=== PATIENT | male | born 1965 | race Caucasian/White ===

== ENCOUNTER 2019-05-26 08:41 | Inpatient (IN) | payer OTHER ==
[~2019-05-26] VITALS: Ht 157.5 cm; Wt 91.3 kg
[2019-05-26 08:43] VITALS: Ht 157.5 cm; Wt 91.3 kg
[2019-05-26] MEDS ORDERED: DILTIAZEM 25 MG INJ IV STA (08:55)
[2019-05-26] MEDS ORDERED: SOD CHLORIDE 0.9% 500 ML IV STA (08:55)
[2019-05-26] MEDS ORDERED: DILTIAZEM-D5W 125MG/125ML DRIP 125 ML IV STA (08:55)
[2019-05-26] MEDS ORDERED: ASPIRIN 81 MG TAB PO STA (08:55)
[2019-05-26] MEDS ORDERED: MAGNESIUM SULFATE 2 GM/50 ML 50 ML IVPB STA (08:55)
--- NOTE | 2019-05-26 10:40 | ERD ---
ER Documentation Chief Complaint Chief Complaint Pt with non radiating CP and PENG since last night. HPI 54-year-old male who presents to the emergency room complaining of palpitations. Patient states that since last night he started to have palpitations with intermittent chest discomfort. Occasionally is having a headache. He is feeling a sensation that his heart is racing currently. He denies pleuritic pain, no recent fevers chills or cough. No recent travel immobilization or calf swelling. Patient was found to be in A. fib with RVR. This is a new diagnosis for him. Translation services were utilized during this patient's encounter Language: Urdu Source: In person ROS All systems reviewed and are negative except as per history of present illness. Medications Home Meds No Active Prescriptions or Reported Meds Allergies Allergies: Coded Allergies: No Known Allergy (Unverified , 05/26/19) PMhx/Soc Medical and Surgical Hx: pt denies Medical Hx, pt denies Surgical Hx Hx Alcohol Use: No Hx Substance Use: No Hx Tobacco Use: No Smoking Status: Never smoker Physical Exam Vitals Vital Signs Date Temp Pulse Resp B/P (MAP) Pulse Ox O2 O2 Flow FiO2 Time Delivery Rate 05/26/19 74 17 102/63 100 Nasal 2.0 09:34 (76) Cannula 05/26/19 Nasal 2 09:11 Cannula 05/26/19 98.2 110 14 130/106 98 08:43 (114) Physical Exam General: Well developed, well nourished, no acute distress Head: Normocephalic, atraumatic. Eyes: Pupils equally reactive, EOM intact ENT: Moist mucous membranes Neck: Supple, no lymphadenopathy Respiratory: Lungs clear bilaterally, no distress Cardiovascular: tachycardia, irregularly irregular, no murmurs, rubs, or gallops Abdominal: Soft, non-tender, non-distended, no peritoneal signs : Deferred MSK: No edema, no unilateral swelling, 5/5 strength Neurologic: Alert and oriented, moving all extremities, normal speech, no focal weakness, no cerebellar signs Skin: No rash Psych: Normal mood Result Diagram: 05/26/1917 05/26/19916 Results 24 hrs Laboratory Tests Test 05/26/19 09:17 White Blood Count 6.6 10^3/ul Red Blood Count 5.15 10^6/ul Hemoglobin 15.3 g/dl Hematocrit 44.6 % Mean Corpuscular Volume 86.6 fl Mean Corpuscular Hemoglobin 29.7 pg Mean Corpuscular Hemoglobin Concent 34.3 g/dl Red Cell Distribution Width 13.1 % Platelet Count 232 10^3/UL Mean Platelet Volume 11.7 fl Immature Granulocytes % 0.200 % Neutrophils % 73.8 % Lymphocytes % 17.5 % Monocytes % 7.4 % Eosinophils % 0.8 % Basophils % 0.3 % Nucleated Red Blood Cells % 0.0 /100WBC Immature Granulocytes # 0.010 10^3/ul Neutrophils # 4.9 10^3/ul Lymphocytes # 1.2 10^3/ul Monocytes # 0.5 10^3/ul Eosinophils # 0.1 10^3/ul Basophils # 0.0 10^3/ul Nucleated Red Blood Cells # 0.0 10^3/ul Prothrombin Time 13.6 Sec Prothrombin Time Ratio 1.1 INR International Normalized Ratio 1.03 Activated Partial Thromboplast Time 33.2 Sec Sodium Level 142 mmol/L Potassium Level 4.0 mmol/L Chloride Level 107 mmol/L Carbon Dioxide Level 25 mmol/L Anion Gap 10 Blood Urea Nitrogen 11 mg/dl Creatinine 0.67 mg/dl Est Glomerular Filtrat Rate mL/min > 60 mL/min Glucose Level 121 mg/dl Calcium Level 9.0 mg/dl Troponin I < 0.012 ng/ml B-Type Natriuretic Peptide 694 PG/ML Thyroid Stimulating Hormone (TSH) 0.856 MIU/L Free Thyroxine Index 2.90 ug/ml Thyroxine (T4) 8.8 ug/dl Triiodothyronine (T3) Uptake 33.0 % Current Medications Medications Dose Sig/Lasha Start Time Status Last (Trade) Ordered Route PRN Stop Time Admin Dose Reason Admin Sodium 500 ml @ Q1H STAT 05/26/19 DC 05/26/19 Chloride 500 mls/hr IV 08:55 05/26/19 09:25 09:54 Aspirin 162 mg ONCE STAT 05/26/19 DC 05/26/19 (Aspirin) PO 08:55 05/26/19 09:23 08:57 Diltiazem 20 mg ONCE STAT 05/26/19 DC 05/26/19 HCl IV 08:55 05/26/19 09:24 (Cardizem Iv) 08:57 Diltiazem 125 ml @ 5 ONCE STAT 05/26/19 HCl mls/hr IV 08:55 05/27/19 09:54 Magnesium 50 ml @ ONCE STAT 05/26/19 DC 05/26/19 Sulfate 600 mls/hr IVPB 08:55 05/26/19 09:23 08:59 Ondansetron 4 mg ER BRIDGE 05/26/19 HCl (Zofran PRN IV 11:00 05/27/19 Inj) NAUSEA/VOMITI 10:59 NG 650 mg ER BRIDGE 05/26/19 Acetaminophen PRN PO 11:00 05/27/19 (Tylenol .MILD PAIN 10:59 Tab) 1-3 OR TEMP Procedures/MDM EKG, MONITORS, & DIAGNOSTIC IMAGING: EKG: I reviewed and interpreted a 12-lead EKG. Rhythm: A. fib with RVR ST Changes: No contiguous ST segment elevations T waves: No contiguous T wave inversions Impression: A. fib with RVR Repeat EKG: EKG: I reviewed and interpreted a 12-lead EKG. Rhythm: A. fib with RVR ST Changes: No contiguous ST segment elevations T waves: No contiguous T wave inversions Impression: A. fib with RVR Chest x-ray: I reviewed and interpreted a 1 view of the chest Mediastinum: No enlargement Cardiac silhouette: No cardiomegaly Airspace: Clear lung arshad bilaterally without evidence of pneumothorax Bones: No evidence of fracture PROCEDURES: None LAB INTERPRETATION: * Troponin MEDICAL DECISION MAKING: The patient's history, physical exam and clinical presentation is consistent with new onset atrial fibrillation with rapid ventricular response of unclear etiology. Broad differential exists without concern for pulmonary embolism. Patient will be warrant inpatient hospitalization for further work-up for new onset A. fib Based on the patient's clinical exam and history and risk factors, I have a much lower clinical concern for pulmonary embolism, acute aortic dissection, pneumothorax, pneumonia, cardiac tamponade ER COURSE: * Magnesium, Cardizem bolus given. No indication for drip at this time. Drip to the bedside. * Aspirin given. Symptoms improved with rate control. CONSULTATION: None DISPOSITION PLAN: Telemetry admission for management of chest pain to rule out acute coronary synd larisa, serial enzymes, risk stratification and consideration of provocative testing CONSULTATION: Accepting care team and consultations: I discussed the current laboratory data, diagnostic imaging and emergency care provided. Admitting team: Dr. Graham Admitting team indication: Insurance directed Departure Diagnosis: Primary Impression: Chest pain Chest pain type: unspecified Qualified Codes: R07.9 - Chest pain, unspecified Additional Impressions: Atrial fibrillation, new onset Atrial fibrillation with RVR Condition: MELVINA Hernandez MD May 26, 2019 10:40
[2019-05-26] MEDS ORDERED: ONDANSETRON 4 MG INJ IV PRN ×2 (11:00→12:00)
[2019-05-26] MEDS ORDERED: ACETAMINOPHEN 325 MG TAB PO PRN ×2 (11:00→12:00)
--- NOTE | 2019-05-26 11:46 | HP ---
Date/Time of Note Date/Time of Note DATE: 05/26/19 TIME: 11:46 Assessment/Plan VTE Prophylaxis Pharmacological prophylaxis: LMWH Lines/Catheters IV Catheter Type (from [email or web address] [place] Lock Assessment/Plan Hospital Course 54-year-old male who denies any significant past medical history who came to the emergency room with chief complaint of chest pain, palpitations, and headache, who was found to have evidence of underlying atrial fibrillation with rapid ventricular response, who will be admitted to inpatient setting for further treatment and evaluation. 1. Atrial fibrillation with rapid ventricular response. Status post Cardizem. Will give a single dose of digoxin. Will start the patient on low-dose beta-blockers. Will obtain cardiology consult. Thyroid panel within normal limits. Will obtain a 2D echocardiogram to evaluate the left ventricular ejection fraction. Obtain urine drug screen. [id number] score is 0. 2. Obesity. BMI 36 kg/m. Obtain hemoglobin A1c and fasting lipid panel. Advised lifestyle modification. Plan: The patient will be admitted to inpatient telemetry floor. The patient will be started on a low cholesterol diet. The patient will be started on DVT prophylaxis. The patient will remain a full code. Activities will be as tolerated. The rest of the patient's management will be based on the clinical course, inpu ts from consultants, and the results of diagnostic studies. Based on the patient's clinical presentation, he most probably requires at least 1 midnight's stay for further management and evaluation of his clinical presentation. The patient was seen in collaboration with Dr. Graham. Result Diagram: 05/26/19 0917 05/26/19 0917 Results 24hrs Laboratory Tests Test 05/26/19 09:17 White Blood Count 6.6 Red Blood Count 5.15 Hemoglobin 15.3 Hematocrit 44.6 Mean Corpuscular Volume 86.6 Mean Corpuscular Hemoglobin 29.7 Mean Corpuscular Hemoglobin Concent 34.3 Red Cell Distribution Width 13.1 Platelet Count 232 Mean Platelet Volume 11.7 H Immature Granulocytes % 0.200 Neutrophils % 73.8 Lymphocytes % 17.5 Monocytes % 7.4 Eosinophils % 0.8 Basophils % 0.3 Nucleated Red Blood Cells % 0.0 Immature Granulocytes # 0.010 Neutrophils # 4.9 Lymphocytes # 1.2 Monocytes # 0.5 Eosinophils # 0.1 Basophils # 0.0 Nucleated Red Blood Cells # 0.0 Prothrombin Time 13.6 Prothrombin Time Ratio 1.1 INR International Normalized Ratio 1.03 Activated Partial Thromboplast Time 33.2 Sodium Level 142 Potassium Level 4.0 Chloride Level 107 Carbon Dioxide Level 25 Anion Gap 10 Blood Urea Nitrogen 11 Creatinine 0.67 Est Glomerular Filtrat Rate mL/min > 60 Glucose Level 121 Calcium Level 9.0 Troponin I < 0.012 B-Type Natriuretic Peptide 694 H Thyroid Stimulating Hormone (TSH) 0.856 Free Thyroxine Index 2.90 Thyroxine (T4) 8.8 Triiodothyronine (T3) Uptake 33.0 HPI/ROS Admit Date/Time Admit Date/Time Hx of Present Illness This is a 54-year-old male who denies any significant past medical history other than remote history of similar episode of palpitations approximately 2 years ago. The patient came to the emergency room today with chief complaint of chest pain, palpitations, and headache. The patient verbalized that the palpitations woke him up from sleep. He was complaining of chest pain, headache, and dizziness. He was complaining of nausea. He denied any vomiting or diaphoresis. He was complaining of some dyspnea. He denied any cough or sore throat. The patient denied any abdominal pain, diarrhea, or constipation. He denied any dysuria, urinary urgency, frequency. In the emergency room, the patient was noticed to be in atrial fibrillation with rapid ventricular response. The patient was given a single dose of aspirin along with a Cardizem 20 mg IV push and IV magnesium. ROS Constitutional: no complaints Eyes: no complaints ENT: no complaints Respiratory: shortness of breath Cardiovascular: chest pain, palpitations Gastrointestinal: nausea Genitourinary: no complaints Musculoskeletal: no complaints Skin: no complaints Neurologic: dizziness, headache Endocrine: no complaints Lymphatic: no complaints Psychological: no complaints Immunologic: no complaints PMH/Family/Social Past Medical History Medical History: no pertinent history Medications Current Medications Diltiazem HCl 125 ml @ 5 mls/hr ONCE STAT IV ; Start 05/26/19 at 08:55; Stop 05/27/19 at 09:54 Ondansetron HCl (Zofran Inj) 4 mg ER BRIDGE PRN IV NAUSEA/VOMITING; Start 05/26/19 at 11:00; Stop 05/27/19 at 10:59 Acetaminophen (Tylenol Tab) 650 mg ER BRIDGE PRN PO .MILD PAIN 1-3 OR TEMP; Start 05/26/19 at 11:00; Stop 05/27/19 at 10:59 Coded Allergies: No Known Allergy (Unverified , 05/26/19) Past Surgical History Past Surgical Hx: no surgical history Family History Significant Family History: hypertension Social History Lives at home with family. Works as a construction project assistant. Alcohol Use: occasionally Smoking Status: Never smoker Drug Use: none Exam/Review of Systems Vital Signs Vitals Vital Signs Date Temp Pulse Resp B/P (MAP) Pulse Ox O2 O2 Flow FiO2 Time Delivery Rate 05/26/19 74 17 102/63 100 Nasal 2.0 09:34 (76) Cannula 05/26/19 98.2 08:43 Exam Exam General: 54 obese, year-old male lying in bed in no apparent distress. HEENT: Normocephalic, atraumatic. Eyes: Anicteric sclerae, conjunctivae clear. ENT: Nasal septum midline, oral mucosa moist. Neck supple, no JVD noticed. Respiratory: Bilaterally diminished breath sounds. No use of accessory muscles of respiration. No adventitious breath sounds. Cardiovascular: S1, S2 heard. Irregularly irregular rhythm. Abdomen: Soft, nontender, and nondistended. Bowel sounds positive in all 4 quadrants. Genitourinary: Deferred. Extremities: No cyanosis, no clubbing, no edema. Peripheral pulses palpable. Neurologic: Cranial nerves II through XII grossly intact. The patient is awake, alert, and oriented. Skin: Normal skin turgor. No skin rashes. Additional Comments CXR IMPRESSION: 1. Mildly atherosclerotic aorta 2. Otherwise, unremarkable portable chest. JOHNNY HUERTA NP May 26, 2019 11:46
[2019-05-26] MEDS ORDERED: NACL 0.9% 3 ML SYG IV SCH (12:00)
[2019-05-26] MEDS ORDERED: NITROGLYCERIN (SL) 0.4 MG TAB SL PRN (12:00)
[2019-05-26] MEDS ORDERED: DIGOXIN 500 MCG INJ IV ONE (12:00)
[2019-05-26] MEDS: METOPROLOL 25 MG TAB PO SCH ×2 (12:00→20:52)
[2019-05-26 18:54] VITALS: BP 105/56; PULSE 94; RESP 18
[2019-05-26 20:31] VITALS: BP 126/72; PULSE 62; RESP 20
[2019-05-26] MEDS: HYDROCODONE/APAP (5/325) TAB PO PRN (20:56)
[2019-05-27 00:03] VITALS: BP 101/66; PULSE 75; RESP 18
[2019-05-27 04:13] VITALS: BP 99/57; PULSE 53; RESP 16
[2019-05-27 07:30] VITALS: BP 108/61; PULSE 70; RESP 18
--- NOTE | 2019-05-27 07:37 | RADRPT ---
Echocardiogram Report Patient Name: RONDA DIOPPatient ID: [id number] : 1965 (54y )Study Date: 05/26/2019 2:09:44 PM Gender: Kelsey #: [id number] Tech: Braulio Baires RDCS Location: [facility] Ref.Physician: JOHNNY HUERTA Height(Cm): BSA: Weight(Kg): Quality: AdequateOrder Physician: JOHNNY HUERTA Account #: Procedures: Echocardiographic Report: Transthoracic echocardiogram with complete 2D, M-Mode, and doppler examination. Indications: Chest Pain. Measurements: 2D/M Mode Doppler Measurement Value Normal Range Measurement Value Normal Range LVIDd 2D 4.7 [ 4.2 - 5.8 ] cm AV Mean Mo 4.4 [ 70.0 - 90.0 ] cm/sec LVIDs 2D 2.3 [ 2.5 - 4.0 ] cm AV Mean PG 96.0 [ 2.0 - 4.0 ] mmHg LVPWd 2D 1.3 [ 0.6 - 1.0 ] cm AV Peak Mo 6.8 [ 100.0 - 170.0 ] cm/sec IVSd 2D 1.3 [ 0.6 - 1.0 ] cm AV Peak PG 186.0 [ 2.0 - 9.0 ] mmHg AoR Diam 2D 2.7 [ 2.6 - 3.4 ] cm AV VTI 125.0 cm LA/Ao 2D 1 ratio TR Peak Mo 2.3 [ 100.0 - 280.0 ] cm/sec LA Dimen 2D 3.9 [ 3.0 - 4.0 ] cm TR Peak PG 21.0 mmHg RVSP 31.0 [ 10.0 - 36.0 ] mmHg RA Pressure 10.0 mmHg Findings: Left Ventricle: Normal left ventricular systolic function. Normal left ventricular cavity size. Moderate asymmetric septal hypertrophy. Mild concentric left ventricular hypertrophy. Abnormal Diastolic Function. Resting left ventricular outflow tract velocity 3.41 m/sec. Resting left ventricular outflow tract gradient 46.0 mmHg. Velocity 6.81 m/sec. Max PG 186.00 mmHg. Right Ventricle: Normal right ventricular size. Normal right ventricular systolic function. Left Atrium: The left atrium is normal in size. Right Atrium: The right atrium is normal in size. Mitral Valve: Normal appearance of the mitral valve. Mild mitral annular calcification. Trace mitral regurgitation. Mild systolic anterior motion of mitral valve. Aortic Valve: Normal appearance of the aortic valve. No significant aortic stenosis or insufficiency. Tricuspid Valve: Normal appearance of the tricuspid valve. The estimated Peak RVSP is 31 mmHg. There is trace tricuspid regurgitation. Pulmonic Valve: Normal pulmonic valve appearance. Pericardium: Normal pericardium with no significant pericardial effusion. Aorta: Normal aortic root. IVC: Normal size and normal respiratory collapse consistent with normal right atrial pressure. Conclusions: Normal left ventricular systolic function. Normal left ventricular cavity size. Moderate asymmetric septal hypertrophy. Mild concentric left ventricular hypertrophy. Abnormal Diastolic Function. Resting left ventricular outflow tract velocity 3.41 m/sec. Resting left ventricular outflow tract gradient 46.0 mmHg. Velocity 6.81 m/sec. Max PG 186.00 mmHg. The left atrium is normal in size. Normal appearance of the mitral valve. Mild mitral annular calcification. Trace mitral regurgitation. Mild systolic anterior motion of mitral valve. Normal appearance of the aortic valve. No significant aortic stenosis or insufficiency. Normal appearance of the tricuspid valve. The estimated Peak RVSP is 31 mmHg. There is trace tricuspid regurgitation. Normal size and normal respiratory collapse consistent with normal right atrial pressure. above is consistent with HCM physiology. Electronically Signed By: Judah Arambula 2019-05-27 07:37:09 PDT
--- NOTE | 2019-05-27 08:32 | CONS ---
Assessment/Plan Assessment/Plan Hospital Course (Demo Recall) 1. Atrial fibrillation rapid ventricular response 2. Chest discomfort secondary to above 3. LVH /septal hypertrophy and GAMAL on the echo with high LV gradient consistent with hypertrophic cardiomyopathy physiology Recommendations: Continue with metoprolol. Heart rate currently stable we will stop the Cardizem drip I recommend anticoagulation with either Xarelto or Eliquis for now. Patient to be reevaluated and if continues to be atrial fibrillation within the next morning DC cardioversion to be considered next month after full anticoagulation has been started. Otherwise DC planning as per internal medicine. Okay to discharge from the cardiac standpoint. Thank you for this referral. We will follow with you as needed basis THEODORA MIN MD [facility] Consultation Date/Type/Reason Admit Date/Time Date of Consultation: May 27, 2019 Type of Consult Cardiology Reason for Consultation afib Requesting Provider: JOHNNY HUERTA NP Date/Time of Note DATE: 05/27/19 TIME: 08:26 Hx of Present Illness Interventional cardiology consultation note Chief complaint: Palpitation headache Reason for consult: Atrial fibrillation History of present illness: Thank you for this referral. History was informed the patient discussion with staff and physicians discussion with with his . This is a pleasant 54-year-old gentleman with no known past medical history who came to the emergency above complaint. Patient stated last night he started having headache. He was having heavy pounding in his chest he was going fast and slow. He called his primary doctor decided to could not see him for another 3 days and patient came to the emergency room. In the emergency room he was noted to be atrial fibrillation with ventricular response. Heart rate has responded well to medication and currently has been bradycardic on Cardizem drip. No chest pain or pressure no palpitation and feels well wants to go home Allergies: No known drug allergies Medications At Home none Family history: Sister with CVA during her Social history: Does not smoke. Occasional use alcohol but denies any heavy use Past medical history: None Review of system: Patient denies all others except for above-mentioned Past Medical History Home Meds No Active Prescriptions or Reported Meds Medications Current Medications Diltiazem HCl 125 ml @ 5 mls/hr ONCE STAT IV Last administered on 05/26/19at 11:59; Admin Dose 5 MLS/HR; Start 05/26/19 at 08:55; Stop 05/27/19 at 09:54 Ondansetron HCl (Zofran Inj) 4 mg ER BRIDGE PRN IV NAUSEA/VOMITING; Start 05/26/19 at 11:00; Stop 05/27/19 at 10:59 Acetaminophen (Tylenol Tab) 650 mg ER BRIDGE PRN PO .MILD PAIN 1-3 OR TEMP Last administered on 05/26/19at 17:33; Admin Dose 650 MG; Start 05/26/19 at 11:00; Stop 05/27/19 at 10:59 IV Flush (NS 3 ml) 3 ml PER PROTOCOL IV ; Start 05/26/19 at 12:00 Ondansetron HCl (Zofran Inj) 4 mg Q6H PRN IV NAUSEA/VOMITING; Start 05/26/19 at 12:00 Aspirin (Aspirin) 81 mg DAILY PO ; Start 05/27/19 at 09:00 Nitroglycerin (Nitroglycerin (Sl Tab) 0.4 Mg) 1 tab Q5M PRN SL .CHEST PAIN; Start 05/26/19 at 12:00 Acetaminophen (Tylenol Tab) 650 mg Q6H PRN PO .PAIN 1-3 OR TEMP; Start 05/26/19 at 12:00 Acetaminophen/ Hydrocodone Bitart ([place] (5/325)) 1 tab Q6H PRN PO .PAIN 4-6 Last administered on 05/26/19at 20:56; Admin Dose 1 TAB; Start 05/26/19 at 12:00 Enoxaparin Sodium (Lovenox) 40 mg DAILY SC ; Start 05/27/19 at 09:00 Metoprolol Tartrate (Lopressor) 25 mg BID PO Last administered on 05/26/19at 20:52; Admin Dose 25 MG; Start 05/26/19 at 12:00 Diltiazem HCl (Cardizem Iv) 5 mg Q1H PRN IV HR>120; Start 05/26/19 at 12:00 Allergies: Coded Allergies: No Known Allergy (Unverified , 05/26/19) Past Surgical History Past Surgical Hx: no surgical history Social History Alcohol Use: occasionally Smoking Status: Never smoker Drug Use: none Exam/Review of Systems Vital Signs Vitals Vital Signs Date Temp Pulse Resp B/P (MAP) Pulse Ox O2 O2 Flow FiO2 Time Delivery Rate 05/27/19 97.5 70 18 108/61 97 07:30 (77) 05/26/19 Room Air 18:54 05/26/19 2.0 18:29 Exam Exam General: no acute distress HEENT: NC/AT. pupils are equal. round. NECK: NO JVD. no stridor. CV: Irregularly irregular. systolic murmur; no gallop or rubs. PULM: no wheezing or rhonchi. GI: SOFT, NT, ND, no rebound or guarding Extremity: trace B/L LE edema. no clubbing. neuro: awake and alert, OX3. Psych: calm and pleasant rectal: deferred EKG in the emergency room showed atrial fibrillation rapid ventricular response Echocardiogram done May 26, 2019 was personally reviewed which shows: Normal left ventricular systolic function. Normal left ventricular cavity size. Moderate asymmetric septal hypertrophy. Mild concentric left ventricular hypertrophy. Abnormal Diastolic Function. Resting left ventricular outflow tract velocity 3.41 m/sec. Resting left ventricular outflow tract gradient 46.0 mmHg. Velocity 6.81 m/sec. Max PG 186.00 mmHg. The left atrium is normal in size. Normal appearance of the mitral valve. Mild mitral annular calcification. Trace mitral regurgitation. Mild systolic anterior motion of mitral valve. Normal appearance of the aortic valve. No significant aortic stenosis or insufficiency. Normal appearance of the tricuspid valve. The estimated Peak RVSP is 31 mmHg. T here is trace tricuspid regurgitation. Normal size and normal respiratory collapse consistent with normal right atrial pressure. above is consistent with HCM physiology. Labs Result Diagram: 05/27/19 0611 05/27/19 0611 Results 24hrs Laboratory Tests Test 05/26/19 09:17 05/26/19 16:50 05/26/19 21:39 05/27/19 06:11 White Blood Count 6.6 7.1 Red Blood Count 5.15 5.26 Hemoglobin 15.3 15.5 Hematocrit 44.6 45.6 Mean Corpuscular Volume 86.6 86.7 Mean Corpuscular 29.7 29.5 Hemoglobin Mean Corpuscular 34.3 34.0 Hemoglobin Concent Red Cell Distribution 13.1 13.5 Width Platelet Count 232 245 Mean Platelet Volume 11.7 H 11.9 H Immature Granulocytes % 0.200 0.300 Neutrophils % 73.8 46.8 Lymphocytes % 17.5 41.7 Monocytes % 7.4 7.6 Eosinophils % 0.8 3.0 Basophils % 0.3 0.6 Nucleated Red Blood 0.0 0.0 Cells % Immature Granulocytes # 0.010 0.020 Neutrophils # 4.9 3.3 Lymphocytes # 1.2 3.0 H Monocytes # 0.5 0.5 Eosinophils # 0.1 0.2 Basophils # 0.0 0.0 Nucleated Red Blood 0.0 0.0 Cells # Prothrombin Time 13.6 Prothrombin Time Ratio 1.1 INR International 1.03 Normalized Ratio Activated 33.2 Partial Thromboplast Time Sodium Level 142 142 Potassium Level 4.0 4.3 Chloride Level 107 109 Carbon Dioxide Level 25 25 Anion Gap 10 8 Blood Urea Nitrogen 11 16 Creatinine 0.67 0.89 Est Glomerular Filtrat > 60 > 60 Rate mL/min Glucose Level 121 125 Hemoglobin A1c 5.3 Calcium Level 9.0 8.6 Troponin I < 0.012 < 0.012 0.016 0.017 B-Type Natriuretic 694 H Peptide Thyroid Stimulating 0.856 Hormone (TSH) Free Thyroxine Index 2.90 Thyroxine (T4) 8.8 Triiodothyronine (T3) 33.0 Uptake Creatine Kinase 117 104 Creatine Kinase Index 2.0 2.0 Creatinine Kinase MB 2.31 2.03 (Mass) Phosphorus Level 4.1 Magnesium Level 2.2 Total Bilirubin 0.5 Direct Bilirubin 0.00 Indirect Bilirubin 0.5 Aspartate Amino 27 Transf (AST/SGOT) Alanine 26 Aminotransferase (ALT/SG PT) Alkaline Phosphatase 47 Total Protein 7.0 Albumin 3.9 Globulin 3.10 Albumin/Globulin Ratio 1.25 Triglycerides Level 214 H Cholesterol Level 183 LDL Cholesterol, 107 Calculated HDL Cholesterol 33 Cholesterol/HDL Ratio 5.5 Medications Medications Current Medications Diltiazem HCl 125 ml @ 5 mls/hr ONCE STAT IV Last administered on 05/26/19at 11:59; Admin Dose 5 MLS/HR; Start 05/26/19 at 08:55; Stop 05/27/19 at 09:54 Ondansetron HCl (Zofran Inj) 4 mg ER BRIDGE PRN IV NAUSEA/VOMITING; Start 05/26/19 at 11:00; Stop 05/27/19 at 10:59 Acetaminophen (Tylenol Tab) 650 mg ER BRIDGE PRN PO .MILD PAIN 1-3 OR TEMP Last administered on 05/26/19at 17:33; Admin Dose 650 MG; Start 05/26/19 at 11:00; Stop 05/27/19 at 10:59 IV Flush (NS 3 ml) 3 ml PER PROTOCOL IV ; Start 05/26/19 at 12:00 Ondansetron HCl (Zofran Inj) 4 mg Q6H PRN IV NAUSEA/VOMITING; Start 05/26/19 at 12:00 Aspirin (Aspirin) 81 mg DAILY PO ; Start 05/27/19 at 09:00 Nitroglycerin (Nitroglycerin (Sl Tab) 0.4 Mg) 1 tab Q5M PRN SL .CHEST PAIN; Start 05/26/19 at 12:00 Acetaminophen (Tylenol Tab) 650 mg Q6H PRN PO .PAIN 1-3 OR TEMP; Start 05/26/19 at 12:00 Acetaminophen/ Hydrocodone Bitart ([place] (5/325)) 1 tab Q6H PRN PO .PAIN 4-6 Last administered on 05/26/19at 20:56; Admin Dose 1 TAB; Start 05/26/19 at 12:00 Enoxaparin Sodium (Lovenox) 40 mg DAILY SC ; Start 05/27/19 at 09:00 Metoprolol Tartrate (Lopressor) 25 mg BID PO Last administered on 05/26/19at 20:52; Admin Dose 25 MG; Start 05/26/19 at 12:00 Diltiazem HCl (Cardizem Iv) 5 mg Q1H PRN IV HR>120; Start 05/26/19 at 12:00 THEODORA MIN MD May 27, 2019 08:32
[2019-05-27] MEDS ORDERED: ASPIRIN 81 MG TAB PO SCH (09:00)
[2019-05-27] MEDS ORDERED: METOPROLOL (XL) 25 MG TAB PO SCH (09:00)
[2019-05-27] MEDS ORDERED: ENOXAPARIN 100 MG/ML SYG SC SCH (09:00)
[2019-05-27] MEDS ORDERED: ENOXAPARIN 40 MG/0.4 ML SYG SC SCH (09:00)
[2019-05-27 11:08] VITALS: BP 144/68; PULSE 66; RESP 18
[2019-05-27] MEDS: HYDROCODONE/APAP (5/325) TAB PO PRN (15:40)
[2019-05-27 15:46] VITALS: BP 103/73; PULSE 78; RESP 18
--- NOTE | 2019-05-27 16:57 | PDOCDIS ---
Discharge Instructions CONDITION [id number] Patient Condition: [id number] Stable HOME CARE INSTRUCTIONS: [id number] Diet Instructions: [id number] y Avoid heavy lifting FOLLOW UP/APPOINTMENTS Follow-up Plan no driving if dizzy. appt primary 1wk Dr Tammi Arambula 2wks COREY ROD MD May 27, 2019 16:57
[2019-05-27] MEDS ORDERED: ACET325T33 PO (16:59)
[2019-05-27] MEDS ORDERED: RIVA20TA5 PO (16:59)
[2019-05-27] MEDS ORDERED: METO-335 PO (16:59)
[2019-05-27] MEDS: DILTIAZEM 25 MG INJ IV PRN ×2 (17:40→18:37)
--- NOTE | 2019-05-27 18:15 | PN ---
Date/Time of Note Date/Time of Note DATE: 05/27/19 TIME: 18:13 Assessment/Plan VTE Prophylaxis Risk score (from [facility])>0 risk: 4 SCD applied (from [facility]): Yes SCD contraindicated: low risk/ambulating Pharmacological prophylaxis: NA/contraindicated Pharm contraindication: low risk/ambulating Lines/Catheters IV Catheter Type (from [facility]): Peripheral IV Urinary Cath still in place: No Assessment/Plan Hospital Course Hospitalist coverage Assessment and plan 1. New onset A. fib RVR, stable adjust rate control. Start Xarelto. Probable cardioversion after 1 month on Xarelto. 2. Atrophic cardia myopathy, stable follow-up with cardiology. 3. Acute stress/adjustment disorder, continue supportive care line 4. Past alcoholism? Denies any stimulant at this time 5. Metabolic syndrome S: less palpitations. Atypical chest pain at rest. No cough diaphoresis nausea vomiting. Under little stress as he is having car trouble. Tachycardic with activity O: Vital signs stable Physical exam No pallor JVD Regular no murmur rub gallop Clear Benign No edema Neuro: Nonfocal Result Diagram: 05/27/19 0611 05/27/19 0611 Results 24hrs Laboratory Tests Test 05/26/19 21:39 05/27/19 06:11 05/27/19 10:00 Creatine Kinase 104 Creatine Kinase Index 2.0 Creatinine Kinase MB (Mass) 2.03 Troponin I 0.016 0.017 White Blood Count 7.1 Red Blood Count 5.26 Hemoglobin 15.5 Hematocrit 45.6 Mean Corpuscular Volume 86.7 Mean Corpuscular Hemoglobin 29.5 Mean Corpuscular Hemoglobin Concent 34.0 Red Cell Distribution Width 13.5 Platelet Count 245 Mean Platelet Volume 11.9 H Immature Granulocytes % 0.300 Neutrophils % 46.8 Lymphocytes % 41.7 Monocytes % 7.6 Eosinophils % 3.0 Basophils % 0.6 Nucleated Red Blood Cells % 0.0 Immature Granulocytes # 0.020 Neutrophils # 3.3 Lymphocytes # 3.0 H Monocytes # 0.5 Eosinophils # 0.2 Basophils # 0.0 Nucleated Red Blood Cells # 0.0 Sodium Level 142 Potassium Level 4.3 Chloride Level 109 Carbon Dioxide Level 25 Anion Gap 8 Blood Urea Nitrogen 16 Creatinine 0.89 Est Glomerular Filtrat Rate mL/min > 60 Glucose Level 125 Calcium Level 8.6 Phosphorus Level 4.1 Magnesium Level 2.2 Total Bilirubin 0.5 Direct Bilirubin 0.00 Indirect Bilirubin 0.5 Aspartate Amino Transf (AST/SGOT) 27 Alanine Aminotransferase (ALT/SGPT) 26 Alkaline Phosphatase 47 Total Protein 7.0 Albumin 3.9 Globulin 3.10 Albumin/Globulin Ratio 1.25 Triglycerides Level 214 H Cholesterol Level 183 LDL Cholesterol, Calculated 107 HDL Cholesterol 33 Cholesterol/HDL Ratio 5.5 Urine Opiates Screen Positive Urine Barbiturates Negative Urine Amphetamines Screen Negative Urine Benzodiazepines Screen Negative Urine Cocaine Screen Negative Urine Cannabinoids Negative Exam/Review of Systems Exam Vitals Vital Signs Date Temp Pulse Resp B/P (MAP) Pulse Ox O2 O2 Flow FiO2 Time Delivery Rate 05/27/19 97.9 78 18 103/73 95 Room Air 15:46 (83) 05/26/19 2.0 18:29 Results Results 24hrs Laboratory Tests Test 05/26/19 21:39 05/27/19 06:11 05/27/19 10:00 Creatine Kinase 104 Creatine Kinase Index 2.0 Creatinine Kinase MB (Mass) 2.03 Troponin I 0.016 0.017 White Blood Count 7.1 Red Blood Count 5.26 Hemoglobin 15.5 Hematocrit 45.6 Mean Corpuscular Volume 86.7 Mean Corpuscular Hemoglobin 29.5 Mean Corpuscular Hemoglobin Concent 34.0 Red Cell Distribution Width 13.5 Platelet Count 245 Mean Platelet Volume 11.9 H Immature Granulocytes % 0.300 Neutrophils % 46.8 Lymphocytes % 41.7 Monocytes % 7.6 Eosinophils % 3.0 Basophils % 0.6 Nucleated Red Blood Cells % 0.0 Immature Granulocytes # 0.020 Neutrophils # 3.3 Lymphocytes # 3.0 H Monocytes # 0.5 Eosinophils # 0.2 Basophils # 0.0 Nucleated Red Blood Cells # 0.0 Sodium Level 142 Potassium Level 4.3 Chloride Level 109 Carbon Dioxide Level 25 Anion Gap 8 Blood Urea Nitrogen 16 Creatinine 0.89 Est Glomerular Filtrat Rate mL/min > 60 Glucose Level 125 Calcium Level 8.6 Phosphorus Level 4.1 Magnesium Level 2.2 Total Bilirubin 0.5 Direct Bilirubin 0.00 Indirect Bilirubin 0.5 Aspartate Amino Transf (AST/SGOT) 27 Alanine Aminotransferase (ALT/SGPT) 26 Alkaline Phosphatase 47 Total Protein 7.0 Albumin 3.9 Globulin 3.10 Albumin/Globulin Ratio 1.25 Triglycerides Level 214 H Cholesterol Level 183 LDL Cholesterol, Calculated 107 HDL Cholesterol 33 Cholesterol/HDL Ratio 5.5 Urine Opiates Screen Positive Urine Barbiturates Negative Urine Amphetamines Screen Negative Urine Benzodiazepines Screen Negative Urine Cocaine Screen Negative Urine Cannabinoids Negative Medications Medication Current Medications IV Flush (NS 3 ml) 3 ml PER PROTOCOL IV ; Start 05/26/19 at 12:00 Ondansetron HCl (Zofran Inj) 4 mg Q6H PRN IV NAUSEA/VOMITING; Start 05/26/19 at 12:00 Nitroglycerin (Nitroglycerin (Sl Tab) 0.4 Mg) 1 tab Q5M PRN SL .CHEST PAIN; Start 05/26/19 at 12:00 Acetaminophen (Tylenol Tab) 650 mg Q6H PRN PO .PAIN 1-3 OR TEMP; Start 05/26/19 at 12:00 Acetaminophen/ Hydrocodone Bitart ([place] (5/325)) 1 tab Q6H PRN PO .PAIN 4-6 Last administered on 05/27/19at 15:40; Admin Dose 1 TAB; Start 05/26/19 at 12:00 Diltiazem HCl (Cardizem Iv) 5 mg Q1H PRN IV HR>120 Last administered on 05/27/19at 17:40; Admin Dose 5 MG; Start 05/26/19 at 12:00 Enoxaparin Sodium (Lovenox) 90 mg BID SC Last administered on 05/27/19at 08:57; Admin Dose 90 MG; Start 05/27/19 at 09:00 Metoprolol Succinate (Toprol Xl) 25 mg DAILY PO Last administered on 05/27/19at 08:56; Admin Dose 25 MG; Start 05/27/19 at 09:00 COREY ROD MD May 27, 2019 18:15
[2019-05-27] MEDS: DILTIAZEM 30 MG TAB PO SCH ×2 (18:37→20:34)
[2019-05-27 20:20] VITALS: BP 107/64; PULSE 63; RESP 18
[2019-05-28 00:30] VITALS: BP 101/56; PULSE 67; RESP 18
[2019-05-28 04:20] VITALS: BP 113/60; PULSE 62; RESP 18
[2019-05-28 07:28] VITALS: BP 113/69; PULSE 67; RESP 18
[2019-05-28] MEDS ORDERED: METOPROLOL (XL) 50 MG TAB PO SCH (09:00)
[2019-05-28] MEDS: DILTIAZEM 30 MG TAB PO SCH ×4 (09:46→20:14)
[2019-05-28 11:21] VITALS: BP 117/82; PULSE 83; RESP 19
--- NOTE | 2019-05-28 14:18 | DS ---
Date/Time of Note Date/Time of Note DATE: 05/28/19 TIME: 14:12 Discharge Summary Admission/Discharge Info Admit Date/Time May 26, 2019 at 10:34 Discharge Date/Time Patient Condition: Stable Consults [facility] Procedures 2D ECHO Conclusions: Normal left ventricular systolic function. Normal left ventricular cavity size. Moderate asymmetric septal hypertrophy. Mild concentric left ventricular hypertrophy. Abnormal Diastolic Function. Resting left ventricular outflow tract velocity 3.41 m/sec. Resting left ventricular outflow tract gradient 46.0 mmHg. Velocity 6.81 m/sec. Max PG 186.00 mmHg. The left atrium is normal in size. Normal appearance of the mitral valve. Mild mitral annular calcification. Trace mitral regurgitation. Mild systolic anterior motion of mitral valve. Normal appearance of the aortic valve. No significant aortic stenosis or insufficiency. Normal appearance of the tricuspid valve. The estimated Peak RVSP is 31 mmHg. There is trace tricuspid regurgitation. Normal size and normal respiratory collapse consistent with normal right atrial pressure. above is consistent with HCM physiology. Electronically Signed By: Chad of Present Illness 54-year-old gentleman admitted with palpitations. Hospital Course Hospitalist coverage/hospital course -Evaluated for atypical chest pain. Rule out for ACS by enzymes EKG symptoms. When seen in ER noted to have new onset A. fib RVR. Rate control started. Seen by cardiology. Heart rate difficult to control. Beta-darren adjusted. Calcium channel darren started. Xarelto started. Plan is probable cardioversion after 1 month of anticoagulation. Noted to have hypertrophic cardiomyopathy on echo. There is asymmetrical septal hypertrophy on echo. A/P 1. New onset A. fib RVR, stable adjust rate control. Start Xarelto. Probable cardioversion after 1 month on Xarelto. 2. Hypertrophic cardiomyopathy, stable follow-up with cardiology. 3. Acute stress/adjustment disorder, continue supportive care; started buspar 4. Past alcoholism? Denies any stimulant at this time 5. Metabolic syndrome S: / less palpitations. Atypical chest pain at rest. No cough diaphoresis nausea vomiting. Under little stress as he is having car trouble. Tachycardic with activity 05/28 less tachycardic with activity. Heart rate about 90-100 with activity. Possibly home later today. O: Vital signs stable Physical exam No pallor JVD Regular no murmur rub gallop Clear Benign No edema Neuro: Nonfocal Home Meds Active Scripts Rivaroxaban* (Xarelto*) 20 Mg Tablet, 20 MG PO WITH DINNER for 30 Days, #30 TAB 1 Refill Prov:COREY ROD MD 05/27/19 Metoprolol Succinate* (Toprol XL*) 25 Mg Tab.sr.24h, 25 MG PO DAILY for 30 Days, #30 1 Refill Prov:COREY ROD MD 05/27/19 Acetaminophen* (Tylenol*) 325 Mg Tablet, 650 MG PO Q6H PRN for .PAIN 1-3 OR TEMP for 1 Day, TAB Prov:COREY ROD MD 05/27/19 Follow-up Plan no driving if dizzy. appt primary 1wk Dr Tammi Arambula 2wks Primary Care Provider [facility] Time spent on discharge: > 30 minutes Pending Labs Laboratory Tests Test 05/28/19 06:27 Sodium Level 141 mmol/L (135-144) Potassium Level 4.0 mmol/L (3.5-5.1) Chloride Level 106 mmol/L (97-110) Carbon Dioxide Level 27 mmol/L (21-31) Anion Gap 8 (5-13) Blood Urea Nitrogen 14 mg/dl (7-20) Creatinine 0.91 mg/dl (0.61-1.24) Est Glomerular Filtrat Rate mL/min > 60 mL/min (>60) Glucose Level 120 mg/dl (70-220) Calcium Level 8.7 mg/dl (8.4-10.2) Magnesium Level 2.0 mg/dl (1.7-2.5) COREY ROD MD May 28, 2019 14:18
[2019-05-28] MEDS ORDERED: DILT30TA30 PO (14:20)
[2019-05-28] MEDS ORDERED: BUSP5TAB2 PO (14:20)
[2019-05-28] MEDS ORDERED: RIVA20TA5 PO (14:20)
[2019-05-28] MEDS ORDERED: METO-319 PO (14:20)
[2019-05-28 16:24] VITALS: BP 99/68; PULSE 70; RESP 18
[2019-05-28] MEDS ORDERED: RIVAROXABAN 20 MG TABLET PO SCH (17:55)
[2019-05-28 20:00] VITALS: BP 122/75; PULSE 78; RESP 20
[2019-05-28] MEDS ORDERED: BUSPIRONE 5 MG TAB PO SCH (21:00)
== END 2019-05-28 20:25 | disposition home or self-care (01) | DRG 310 ==
LOC: E/R 08:41 → TEL 10:34
PROVIDERS: ADMIT Internal Medicine; ATTEND Internal Medicine
DX: I48.91 Unspecified atrial fibrillation (principal); R07.89 Other chest pain; I42.2 Other hypertrophic cardiomyopathy; Z73.3 Stress, not elsewhere classified; F43.20 Adjustment disorder, unspecified; E88.81 Metabolic syndrome and other insulin resistance; R51 Headache; E66.9 Obesity, unspecified; Z68.36 Body mass index [BMI] 36.0-36.9, adult
CPT/HCPCS: 36415; 71045; 80048; 80053; 80061; 80307; 82550; 82553; 83036; 83735; 83880; 84100; 84436; 84443; 84479; 84484; 85025; 85610; 85730; 93005; 93306; 96374; 96375; J1650; J3475; J7040

== ENCOUNTER 2019-05-29 20:02 | Emergency (ER) | payer OTHER ==
[~2019-05-29] VITALS: Ht 162.6 cm; Wt 92.1 kg
[~2019-05-29 20:02] MED LIST: ACET325T33 PO; BUSP5TAB2 PO; DILT30TA30 PO; METO-319 PO; RIVA20TA5 PO
[2019-05-29 20:07] VITALS: Ht 162.6 cm; Wt 92.1 kg
[2019-05-29] MEDS ORDERED: KETOROLAC 15 MG INJ IV STA (22:50)
[2019-05-29] MEDS ORDERED: METOCLOPRAMIDE 10 MG INJ IV ONE (23:00)
[2019-05-29] MEDS ORDERED: SOD CHLORIDE 0.9% 500 ML IV ONE (23:00)
[2019-05-29] MEDS ORDERED: DIPHENHYDRAMINE 50 MG INJ IV ONE (23:00)
--- NOTE | 2019-05-29 23:12 | ERD ---
ER Documentation Chief Complaint Chief Complaint HEADACHE, "HEAD IS ABOUT TO EXPLODE" HPI This is a 54-year-old male with a past medical history of stable hypertrophic cardiomyopathy, new onset atrial fibrillation rate controlled with metoprolol XL and Cardizem, currently on Xarelto, acute stress adjustment disorder with anxiety now presenting for persistent symptoms as his last admission. The patient was admitted from May 26 to May 28 for new onset palpitations. He was evaluated by Dr. Bennett from cardiology in the hospital where he had an echocardiogram completed, and he was ultimately determined to be stable for discharge on the medications described above. The patient reports that despite taking his medications as prescribed, the patient does continue to have intermittent palpitations and he feels a burning and pressure to his head and his body. He feels very anxious at this time. He also reports a pressure-like headache and a burning sensation generally over his body. He denies any chest pain. He denies any shortness of breath. He denies any lightheadedness or dizziness. He is not diaphoretic. The patient denies nausea or vomiting. The patient denies feeling sick recently. The patient denies fever or chills. The patient has had no headache or vision changes. The patient does not endorse neck or back pain. The patient denies abdominal pain. The patient denies changes to bowel movements or urination. The patient has had no focal deficits. The patient has had no weakness or numbness or tingling to the face or extremities. ROS All systems reviewed and are negative except as per history of present illness. Medications Home Meds Active Scripts Buspirone Hcl* (Buspirone Hcl*) 5 Mg Tab, 5 MG PO BID for 14 Days, #30 TAB Prov:COREY ROD MD 05/28/19 Metoprolol Succinate* (Toprol XL*) 50 Mg Tab.er.24h, 50 MG PO DAILY for 14 Days, #15 Prov:COREY ROD MD 05/28/19 Diltiazem Hcl* (Cardizem*) 30 Mg Tablet, 30 MG PO QID for 10 Days, #40 TAB Prov:COREY ROD MD 05/28/19 Rivaroxaban* (Xarelto*) 20 Mg Tablet, 20 MG PO WITH DINNER for 30 Days, #30 TAB Prov:COREY ROD MD 05/28/19 Rivaroxaban* (Xarelto*) 20 Mg Tablet, 20 MG PO WITH DINNER for 30 Days, #30 TAB 1 Refill Prov:COREY ROD MD 05/27/19 Acetaminophen* (Tylenol*) 325 Mg Tablet, 650 MG PO Q6H PRN for .PAIN 1-3 OR TEMP for 1 Day, TAB Prov:COREY ROD MD 05/27/19 Allergies Allergies: Coded Allergies: No Known Allergy (Unverified , 05/26/19) PMhx/Soc History of Surgery: No Anesthesia Reaction: No Hx Neurological Disorder: No Hx Respiratory Disorders: No Hx Cardiac Disorders: Yes (AFIB) Hx Psychiatric Problems: No Hx Miscellaneous Medical Probl: No Hx Alcohol Use: No Hx Substance Use: No Hx Tobacco Use: No Smoking Status: Never smoker FmHx Family History: No diabetes Physical Exam Vitals Vital Signs Date Temp Pulse Resp B/P (MAP) Pulse Ox O2 O2 Flow FiO2 Time Delivery Rate 05/29/19 90 18 136/86 100 Room Air 22:33 (103) 05/29/19 97.8 93 18 159/83 100 20:07 (108) Physical Exam Const: No apparent distress, well-developed, well-nourished Head: Normocephalic, Atraumatic Eyes: Normal Conjunctiva. Extraocular movements intact. Pupils equal, round and reactive to light ENT: Normal External Ears, Nose and Mouth. Neck: Full range of motion. No meningismus. Resp: Clear to auscultation bilaterally, No wheezes, rales or rhonchi Cardio: Regular rate and rhythm. No murmurs, rubs or gallops Abd: Soft, non tender, non distended. Normal bowel sounds Skin: No petechiae or rashes Back: No midline tenderness. No CVA tenderness Ext: No cyanosis, or edema Neur: Awake and alert, oriented 4. Cranial nerves intact. No facial droop. Normal strength, sensation and coordination. Psych: Normal Mood and Affect Procedures/MDM MDM The patient's presentation warrants further investigation. Previous medical records, if available, were reviewed. EKG EKG read by me: Rate/Rhythm: Irregularly irregular rhythm, regular rate indicating rate controlled atrial fibrillation Intervals: Normal QRS and QTc. [place]: Normal Impression: No evidence of acute ischemia. Rate controlled atrial fibrillation TREATMENT/DISPOSITION The patient reports persistent palpitations since his admission to the hospital recently. The patient's EKG reveals rate controlled atrial fibrillation. He does not require any emergent treatment of his atrial fibrillation at this time. The patient's EKG is otherwise reassuring. I have low suspicion for acute coronary syndrome. I spoke to the on-call geothermal technician for Dr. Oliveros, Dr. Bauer, who was reassured by the recent work-up that have been performed. I do feel that is appropriate for the patient to pursue his outpatient management as scheduled and continue taking the medications that were recently prescribed. The patient's lungs are clear. I have low suspicion for pneumonia or pneumothorax or pleural effusions or pulmonary edema. The patient does not have signs or symptoms concerning for thoracic aortic aneurysm or dissection. The patient does not any crepitus or signs concerning for esophageal tear or rupture. The patient has no clinical signs of pericardial effusion or tamponade. The patient does not symptoms concerning for viscus perforation as possible referred discomfort. The patient does not have a history of heart failure and I have low suspicion for this. The patient does not have a diagnosis of COPD and is not wheezing today. The patient is not tachypneic or hypoxic. The patient is breathing comfortably and without pleuritic pain. The patient is not on hormonal therapy. The patient has no history of clotting or bleeding disorders. The patient has no calf tenderness. The patient has had no hemoptysis. I have decreased suspicion for PE. The patient also endorses a pressure-like headache. Differential diagnosis includes migraine, tension headache, cluster headache. The patient has no focal deficits. The neurologic exam is reassuring. I have decreased suspicion for cerebral ischemia. There was no trauma or injury. There is no personal or family history of cerebral aneurysm. This is not the worst headache of the patient's life. It was not acutely severe. It is been progressive in nature. I have decreased suspicion for SAH or other ICH. I have low suspicion for temporal arteritis, cavernous venous thrombosis, subdural hematoma, epidural hematoma, meningitis. The patient was treated for his headache symptoms. DISCHARGE Upon reevaluation of the patient, symptoms have improved. No emergent diagnoses were identified. At this time, I feel that the patient stable for discharge. The patient was instructed to follow-up with a primary care physician in 1-3 days. The patient will be given strict precautions with which to return to the emergency department. Prescriptions: None The patient's blood pressure was elevated at greater than 120/80 while in the emergency department. The patient was otherwise stable with no evidence of hypertensive urgency or emergency. The patient does not require admission for blood pressure control. I have discussed with the patient the risks of hypertension. I have instructed the patient to return to the ER for any new or worsening symptoms including chest pain, shortness of breath, headache, blurred vision, confusion, nausea, vomiting or LOC. I have advised the patient to follow up with the primary care physician for outpatient monitoring and treatment for hypertension in 1-3 days. Disclaimer: Inadvertent spelling and grammatical errors are likely due to EHR/di ctation software use and do not reflect on the overall quality of patient care. Note that the electronic time recorded on this note does not necessarily reflect the actual time of the patient encounter. Departure Diagnosis: Primary Impression: Rate controlled atrial fibrillation Additional Impressions: Palpitations Headache Headache type: unspecified Headache chronicity pattern: episodic headache Intractability: not intractable Qualified Codes: R51 - Headache Condition: Stable Patient Instructions: Atrial Fibrillation, Palpitations, Self-Care for Headaches Additional Instructions: Thank you for for coming to [facility] for your care today. Please ask your nurse or provider if you have questions about your care today and do not leave until all your questions have been answered. Please use any medications given as directed and follow-up with your doctor (or the doctor you were referred to) in the next 1-3 days. If you do not have a primary care doctor you may follow up at the [facility] [place], [place] or [facility] (listed below). You may also use motrin and tylenol as needed for fever and/or pain unless instructed otherwise by your provider or nurse. Indications for more urgent follow-up have been discussed, but you may return to the Emergency Department at ANY time for any worrisome or worsening symptoms. If you have abdominal pain, please know that no test or exam you received is perfect and you should follow up within 8 hours for continued pain. If you had any imaging studies today, such as an X-Ray or CT Scan, these studies will be reviewed later by a radiologist. You will be called if there are important findings that were not identified today, so make sure the contact information you provided at registration is correct. If you received any narcotic pain control medicine today, such as Vicodin, Morphine or Dilaudid, your coordination and judgment may be affected for a number of hours. Please do not drive or operate heavy machinery, and you may want someone to assist you at home. If you were given a prescription for narcotic medication, be aware that it is very addictive- use sparingly and only if necessary. PLEASE SEEK FURTHER EVALUATION AND MANAGEMENT AT YOUR DOCTORS OFFICE WITHIN THE NEXT 1-3 DAYS. IT IS YOUR RESPONSIBILITY TO MAKE AN APPOINTMENT FOR FOLOW-UP CARE. IF YOU HAVE A PRIMARY DOCTOR, PLEASE CALL THEIR OFFICE TO SCHEDULE AN APPOINTMENT FOR FOLLOW UP. IF YOU DO NOT HAVE A PRIMARY DOCTOR YOU CAN CALL OUR PHYSICIAN REFERRAL HOTLINE AT IF YOU CAN NOT AFFORD TO SEE A PHYSICIAN YOU CAN CHOSE FROM THE FOLLOWING [facility] CL[facility]ICS: [employer] [address] [facility]. [facility] [address]. [facility] [address] [facility] [address] [facility] [facility] [address] [facility]. [facility]. [address] ROCHELLE LONGORIA MD May 29, 2019 23:05
[2019-05-29 23:31] VITALS: BP 114/82; PULSE 78; RESP 18
== END 2019-05-29 23:35 | disposition home or self-care (01) ==
LOC: E/R 20:02
DX: I48.91 Unspecified atrial fibrillation (principal); R51 Headache
CPT/HCPCS: J1200; J1885; J2765; J7040; 93005; 96361; 96374; 96375

== ENCOUNTER 2019-06-01 23:52 | Emergency (ER) | payer OTHER ==
[~2019-06-01] VITALS: Ht 165.1 cm; Wt 91.6 kg
[2019-06-01 23:56] VITALS: Ht 165.1 cm; Wt 91.6 kg
[2019-06-02] MEDS ORDERED: DIPHENHYDRAMINE 50 MG INJ IV STA (01:01)
[2019-06-02] MEDS ORDERED: ACETAMINOPHEN 325 MG TAB PO STA (01:01)
[2019-06-02] MEDS ORDERED: ONDANSETRON 4 MG INJ IV STA (01:01)
[2019-06-02] MEDS ORDERED: SOD CHLORIDE 0.9% 1,000 ML IV STA (01:01)
[2019-06-02] MEDS ORDERED: NAPR-985 PO (01:55)
[2019-06-02 03:50] VITALS: BP 104/61; PULSE 80; RESP 18
--- NOTE | 2019-06-03 01:57 | ERD ---
ER Documentation Chief Complaint Chief Complaint headache x 2 days HPI 54-year-old male with recently diagnosed atrial fibrillation presents emergency department complaining of severe intermittent headache for the past 2 days. It was 10/10 in severity earlier but now is 4/10 in severity. He took Tylenol at home without relief. He states he has recently started anticoagulation medication for atrial fibrillation. Denies any head trauma or other symptoms at this time. ROS All systems reviewed and are negative except as per history of present illness. Medications Home Meds Active Scripts Naproxen* (Naprosyn*) 500 Mg Tablet, 500 MG PO BID PRN for PAIN AND/OR INFLAMMATION, #30 TAB Prov:SUMIT ACOSTA PA-C 06/02/19 Buspirone Hcl* (Buspirone Hcl*) 5 Mg Tab, 5 MG PO BID for 14 Days, #30 TAB Prov:COREY ROD MD 05/28/19 Metoprolol Succinate* (Toprol XL*) 50 Mg Tab.er.24h, 50 MG PO DAILY for 14 Days, #15 Prov:COREY ROD MD 05/28/19 Diltiazem Hcl* (Cardizem*) 30 Mg Tablet, 30 MG PO QID for 10 Days, #40 TAB Prov:COREY ROD MD 05/28/19 Rivaroxaban* (Xarelto*) 20 Mg Tablet, 20 MG PO WITH DINNER for 30 Days, #30 TAB Prov:COREY ROD MD 05/28/19 Rivaroxaban* (Xarelto*) 20 Mg Tablet, 20 MG PO WITH DINNER for 30 Days, #30 TAB 1 Refill Prov:COREY ROD MD 05/27/19 Acetaminophen* (Tylenol*) 325 Mg Tablet, 650 MG PO Q6H PRN for .PAIN 1-3 OR TEMP for 1 Day, TAB Prov:COREY ROD MD 05/27/19 Allergies Allergies: Coded Allergies: No Known Allergy (Unverified , 05/26/19) PMhx/Soc History of Surgery: No Anesthesia Reaction: No Hx Neurological Disorder: No Hx Respiratory Disorders: No Hx Cardiac Disorders: Yes (AFIB) Hx Psychiatric Problems: No Hx Miscellaneous Medical Probl: No Hx Alcohol Use: No Hx Substance Use: No Hx Tobacco Use: No Smoking Status: Never smoker FmHx Family History: No diabetes Physical Exam Vitals Vital Signs Date Temp Pulse Resp B/P (MAP) Pulse Ox O2 O2 Flow FiO2 Time Delivery Rate 06/02/19 97.6 80 18 104/61 97 Room Air 03:50 (75) 06/01/19 98.2 61 18 124/91 100 23:56 (102) Physical Exam Const: No acute distress Head: Atraumatic Eyes: Normal Conjunctiva ENT: Normal External Ears, Nose and Mouth. Neck: Full range of motion. No meningismus. Resp: Clear to auscultation bilaterally Cardio: Regular rate and rhythm, no murmurs Abd: Soft, non tender, non distended. Normal bowel sounds Skin: No petechiae or rashes Back: No midline or flank tenderness Ext: No cyanosis, or edema Neur: Awake and alert. No neurological deficits. Psych: Normal Mood and Affect Result Diagram: 06/02/198 06/02/19 0118 Results 24 hrs Laboratory Tests Test 06/02/19 01:18 White Blood Count 8.4 10^3/ul Red Blood Count 5.14 10^6/ul Hemoglobin 15.3 g/dl Hematocrit 44.6 % Mean Corpuscular Volume 86.8 fl Mean Corpuscular Hemoglobin 29.8 pg Mean Corpuscular Hemoglobin Concent 34.3 g/dl Red Cell Distribution Width 12.6 % Platelet Count 242 10^3/UL Mean Platelet Volume 11.8 fl Immature Granulocytes % 0.200 % Neutrophils % 67.0 % Lymphocytes % 23.8 % Monocytes % 6.5 % Eosinophils % 2.0 % Basophils % 0.5 % Nucleated Red Blood Cells % 0.0 /100WBC Immature Granulocytes # 0.020 10^3/ul Neutrophils # 5.6 10^3/ul Lymphocytes # 2.0 10^3/ul Monocytes # 0.6 10^3/ul Eosinophils # 0.2 10^3/ul Basophils # 0.0 10^3/ul Nucleated Red Blood Cells # 0.0 10^3/ul Prothrombin Time 23.1 Sec Prothrombin Time Ratio 1.8 INR International Normalized Ratio 2.04 Activated Partial Thromboplast Time 49.5 Sec Sodium Level 139 mmol/L Potassium Level 4.2 mmol/L Chloride Level 104 mmol/L Carbon Dioxide Level 25 mmol/L Anion Gap 10 Blood Urea Nitrogen 18 mg/dl Creatinine 0.88 mg/dl Est Glomerular Filtrat Rate mL/min > 60 mL/min Glucose Level 112 mg/dl Calcium Level 9.1 mg/dl Current Medications Medications Dose Sig/Lasha Start Time Status Last (Trade) Ordered Route PRN Stop Time Admin Dose Reason Admin Sodium 1,000 ml @ Q1H STAT 06/02/19 DC 06/02/19 Chloride 1,000 mls/hr IV 01:01 06/02/19 01:29 02:00 650 mg ONCE STAT 06/02/19 DC 06/02/19 Acetaminophen PO 01:06/02/19 01:28 (Tylenol 01:03 Tab) Ondansetron 4 mg ONCE STAT 06/02/19 DC 06/02/19 HCl (Zofran IV 01:06/02/19 01:29 Inj) 01:03 25 mg ONCE STAT 06/02/19 DC 06/02/19 Diphenhydrami IV 01:06/02/19 01:29 ne HCl 01:03 (Benadryl) [place] [address] Radiology Main Line: [phone] DIAGNOSTIC IMAGING REPORT Patient: RONDA DIOP : 1965 Age: 54 Sex: M MR #: [id number] DOS: 06/02/19 0000 Ordering MD: SUMIT ACOSTA PA-C Location: [facility] Room/Bed: PROCEDURE: CT Brain without contrast. CLINICAL INDICATION: Headache TECHNIQUE: CT scan of the brain was performed on a multidetector high-resolu tion CT scan. Axial imaging was obtained of the brain without contrast administration. Coronal and sagittal reformatted images were obtained from the axial source images. Standard CT scan of the head without contrast protocols were performed. The total exam CTDI equals 39.64 mGy and the total exam DLP equals 634.23 mGy- cm. One or more of the following dose reduction techniques were used: - Automated exposure control. - Adjustment of the mA and/or kV according to patient size. Use of iterative reconstruction technique. Dicom images are available COMPARISON: None. FINDINGS: The ventricular system and peripheral CSF spaces are unremarkable. No evidence of intracranial masses hemorrhages the diaz-white matter differentiation is unremarkable. There is a 1.5 cm inferior right maxillary sinus mucous retention cyst. Remainder the paranasal sinuses and mastoids are unremarkable. The bones of the calvarium are intact. IMPRESSION: No evidence of intracranial masses hemorrhages or midline shift. RPTAT:AAJJ Physician Unique Date Time Electronically viewed and signed by Physician Unique on 06/02/2019 03:20 BM/ CC: SUMIT ACOSTA PA-C [id number] Procedures/MDM Patient is a 54-year-old male presenting to the emergency department with complaints of headache. Differential diagnoses include meningitis, intracranial hemorrhage, subarachnoid hemorrhage, CVA, TIA, tension headache, migraine, cluster headache, and others. I doubt any life threatening etiology at this time. [CT scan of the head was unremarkable.] Patient improved in the department after treatment with Tylenol, Benadryl, Zofran. Pt is to follow-up with primary care physician and return here immediately for any new or worsening symptoms. No evidence of life-threatening pathology at time of discharge. Pt/family in agreement with discharge plan/diagnosis. Pt/family advised to return immediately with any new or worsening symptoms. Follow-up with primary care physician within the next 1-2 days. Patient's blood pressure was elevated (>120/80) but appears stable without evidence of hypertension emergency or urgency. The patient is to follow-up and pursue outpatient monitoring and therapy with their primary care physician within 1 week and return immediately if they have any new, worsening, or concerning symptoms. Disclaimer: Inadvertent spelling and grammatical errors are likely due to EHR/dictation software use and do not reflect on the overall quality of patient care. Also, please note that the electronic time recorded on this note does not necessarily reflect the actual time of the patient encounter. Departure Diagnosis: Primary Impression: Headache Condition: Fair Patient Instructions: Self-Care for Headaches Referrals: [facility] (PCP) Additional Instructions: Llame al doctor MAANA y kandace radha WILLI PARA DENTRO DE 1-2 TUCKER.Dgale a la secretaria que nosotros le instruimos hacer esta willi.Avise o llame si padilla condicin se empeora antes de la willi. Regresa aqui si peor o no mejor. SUMIT ACOSTA PA-C Jun 03, 2019 01:57
== END 2019-06-02 03:51 | disposition home or self-care (01) ==
LOC: FTE 23:52
DX: R51 Headache (principal)
CPT/HCPCS: 36415; 70450; 80048; 85025; 85610; 85730; 96361; 96374; 96375; J1200; J2405; J7030; Z7502; Z7610

== ENCOUNTER 2019-06-03 17:49 | Inpatient (IN) | payer OTHER ==
[~2019-06-03] VITALS: Ht 165.1 cm; Wt 93.4 kg
[~2019-06-03 17:49] MED LIST changes: +NAPR-985 PO
[2019-06-03] MEDS ORDERED: SOD CHLORIDE 0.9% 1,000 ML IV STA (18:26)
[2019-06-03] MEDS ORDERED: DILTIAZEM 25 MG INJ IV STA (21:02)
[2019-06-03] MEDS ORDERED: DILTIAZEM-D5W 125MG/125ML DRIP 125 ML IV STA (21:02)
[2019-06-03] MEDS ORDERED: MAGNESIUM SULFATE 2 GM/50 ML 50 ML IVPB ONE (22:00)
[2019-06-03] MEDS ORDERED: NACL 0.9% 3 ML SYG IV SCH (22:00)
[2019-06-03] MEDS ORDERED: DOCUSATE SODIUM 100 MG CAP PO PRN (22:00)
[2019-06-03] MEDS ORDERED: ONDANSETRON 4 MG INJ IV PRN ×2 (22:00→22:30)
[2019-06-03] MEDS ORDERED: BISACODYL (EC) 5 MG TAB PO PRN (22:00)
[2019-06-03] MEDS ORDERED: ACETAMINOPHEN 325 MG TAB PO PRN ×2 (22:00→22:30)
--- NOTE | 2019-06-03 22:28 | ERD ---
ER Documentation Chief Complaint Chief Complaint C/O HEADCAHE , CHEST PAIN , DIZZINESS , HIGH BLOOD PRESSURE HPI This is a 54-year-old male with a past medical history of hypertension, atrial fibrillation who is presenting again for intermittent waxing and waning midsternal pressure-like nonradiating moderate chest pain with significant palpitations, lightheadedness and a mild throbbing occipital headache radiating to the front bilaterally without photophobia or phonophobia or nausea. The patient also has intermittently checked his blood pressure at home which is found to be elevated. The patient was recently admitted to the hospital for new onset atrial fibrillation and started on multiple medications including Toprol-XL, Cardizem and Xarelto. The patient reports taking these medications compliantly, but his symptoms have persisted. The patient was seen yesterday for similar symptoms, but he was rate controlled at the time. The patient is now tachycardic anywhere from the 110s to the 150s. The patient does not endorse any alleviating or exacerbating factors. The patient denies fever or chills. The patient does not endorse neck pain or stiffness. He does not endorse any back pain. The patient denies dizziness. The patient has had no trouble breathing. The patient denies vomiting. The patient denies abdominal pain. The patient denies changes to bowel movements or urination. The patient has had no focal deficits. The patient has had no weakness or numbness or tingling to the face or extremities. ROS All systems reviewed and are negative except as per history of present illness. Medications Home Meds Active Scripts Naproxen* (Naprosyn*) 500 Mg Tablet, 500 MG PO BID PRN for PAIN AND/OR INFLAMMATION, #30 TAB Prov:SUMIT ACOSTA PA-C 06/02/19 Buspirone Hcl* (Buspirone Hcl*) 5 Mg Tab, 5 MG PO BID for 14 Days, #30 TAB Prov:COREY ROD MD 05/28/19 Metoprolol Succinate* (Toprol XL*) 50 Mg Tab.er.24h, 50 MG PO DAILY for 14 Days, #15 Prov:COREY ROD MD 05/28/19 Diltiazem Hcl* (Cardizem*) 30 Mg Tablet, 30 MG PO QID for 10 Days, #40 TAB Prov:COREY ROD MD 05/28/19 Rivaroxaban* (Xarelto*) 20 Mg Tablet, 20 MG PO WITH DINNER for 30 Days, #30 TAB 1 Refill Prov:COREY ROD MD 05/27/19 Acetaminophen* (Tylenol*) 325 Mg Tablet, 650 MG PO Q6H PRN for .PAIN 1-3 OR TEMP for 1 Day, TAB Prov:COREY ROD MD 05/27/19 Discontinued Scripts Rivaroxaban* (Xarelto*) 20 Mg Tablet, 20 MG PO WITH DINNER for 30 Days, #30 TAB Prov:COREY ROD MD 05/28/19 Allergies Allergies: Coded Allergies: No Known Allergy (Unverified , 06/03/19) PMhx/Soc History of Surgery: No Anesthesia Reaction: No Hx Neurological Disorder: No Hx Respiratory Disorders: No Hx Cardiac Disorders: Yes (AFIB) Hx Psychiatric Problems: No Hx Miscellaneous Medical Probl: No Hx Alcohol Use: No Hx Substance Use: No Hx Tobacco Use: No Smoking Status: Never smoker FmHx Family History: No diabetes Physical Exam Vitals Vital Signs Date Temp Pulse Resp B/P (MAP) Pulse Ox O2 O2 Flow FiO2 Time Delivery Rate 06/03/19 59 18 93/66 (75) 21:34 06/03/19 111 122/107 20:51 (112) 130 110/86 (94) 153 94/80 (85) 06/03/19 116 18 115/69 95 Room Air 20:30 (84) 06/03/19 103 18 103/75 97 Room Air 18:26 (84) 06/03/19 98.1 78 18 126/74 98 17:55 (91) Physical Exam Const: No apparent distress, well-developed, well-nourished Head: Normocephalic, Atraumatic Eyes: Normal Conjunctiva. Extraocular movements intact. Pupils equal, round and reactive to light ENT: Normal External Ears, Nose and Mouth. Neck: Full range of motion. No meningismus. Resp: Clear to auscultation bilaterally, No wheezes, rales or rhonchi Cardio: Tachycardia. Irregularly irregular rhythm. No murmurs, rubs or gal lops Abd: Soft, non tender, non distended. Normal bowel sounds Skin: No petechiae or rashes Back: No midline tenderness. No CVA tenderness Ext: No cyanosis, or edema Neur: Awake and alert, oriented 4. Cranial nerves intact. No facial droop. Normal strength, sensation and coordination. Psych: Normal Mood and Affect Result Diagram: 06/03/19185406/03/191854 Results 24 hrs Laboratory Tests Test 06/03/19 18:55 White Blood Count 7.8 10^3/ul Red Blood Count 5.02 10^6/ul Hemoglobin 14.9 g/dl Hematocrit 43.6 % Mean Corpuscular Volume 86.9 fl Mean Corpuscular Hemoglobin 29.7 pg Mean Corpuscular Hemoglobin Concent 34.2 g/dl Red Cell Distribution Width 12.5 % Platelet Count 278 10^3/UL Mean Platelet Volume 11.3 fl Immature Granulocytes % 0.100 % Neutrophils % 70.3 % Lymphocytes % 20.4 % Monocytes % 6.7 % Eosinophils % 2.1 % Basophils % 0.4 % Nucleated Red Blood Cells % 0.0 /100WBC Immature Granulocytes # 0.010 10^3/ul Neutrophils # 5.5 10^3/ul Lymphocytes # 1.6 10^3/ul Monocytes # 0.5 10^3/ul Eosinophils # 0.2 10^3/ul Basophils # 0.0 10^3/ul Nucleated Red Blood Cells # 0.0 10^3/ul Prothrombin Time 17.1 Sec Prothrombin Time Ratio 1.3 INR International Normalized Ratio 1.38 Sodium Level 141 mmol/L Potassium Level 4.4 mmol/L Chloride Level 107 mmol/L Carbon Dioxide Level 24 mmol/L Anion Gap 10 Blood Urea Nitrogen 19 mg/dl Creatinine 1.12 mg/dl Est Glomerular Filtrat Rate mL/min > 60 mL/min Glucose Level 107 mg/dl Calcium Level 9.3 mg/dl Troponin I < 0.012 ng/ml Current Medications Medications Dose Sig/Lasha Start Time Status Last (Trade) Ordered Route PRN Stop Time Admin Dose Reason Admin Sodium 1,000 ml @ Q1H STAT 06/03/19 DC 06/03/19 Chloride 1,000 mls/hr IV 18:26 19:00 06/03/19 19:25 Diltiazem 20 mg ONCE STAT 06/03/19 DC 06/03/19 HCl IV 21:02 21:22 (Cardizem Iv) 06/03/19 21:03 Diltiazem 125 ml @ 5 ONCE STAT 06/03/19 HCl mls/hr IV 21:02 06/04/19 22:01 650 mg Q6H PRN 06/03/19 Acetaminophen PO .PAIN 1-3 22:00 (Tylenol OR TEMP Tab) Buspirone 5 mg BID PO 06/04/19 HCl 09:00 (Buspar) Diltiazem 30 mg QID PO 06/04/19 HCl 09:00 (Cardizem) Metoprolol 50 mg DAILY PO 06/04/19 Succinate 09:00 (Toprol Xl) Rivaroxaban 20 mg WITH 06/04/19 (Xarelto) DINNER PO 18:00 IV Flush 3 ml PER 06/03/19 (NS 3 ml) PROTOCOL IV 22:00 Ondansetron 4 mg Q6H PRN 06/03/19 HCl (Zofran IV 22:00 Inj) NAUSEA/VOMITI NG 650 mg Q6H PRN 06/03/19 Acetaminophen PO .PAIN 1-3 22:00 (Tylenol OR TEMP Tab) Docusate 100 mg Q12H PRN 06/03/19 Sodium PO 22:00 (Colace) .CONSTIPATION Bisacodyl 5 mg DAILY PRN 06/03/19 (Dulcolax) PO 22:00 .CONSTIPATION Magnesium 50 ml @ 25 ONCE ONCE 06/03/19 Sulfate mls/hr IVPB 22:00 06/03/19 23:59 Procedures/MDM MDM The patient's presentation warrants further investigation. Previous medical records, if available, were reviewed. LABS The patient's laboratory testing was obtained and reviewed. No emergent treatment was required unless described below. CBC: No E/o systemic infection or severe anemia or thrombocytopenia Chemistry: No E/o severe acidosis or alkalosis or renal failure or diabetic ketoacidosis PT/INR: Slightly elevated which does correlate with Xarelto Troponin: No E/o acute ischemia EKG EKG read by me: Rate/Rhythm: Tachycardia, irregular irregular rhythm indicating atrial fibrillation with rapid ventricular response at 114 bpm Intervals: Normal QRS and QTc. No P waves evident. [place]: Normal Impression: No evidence of acute ischemia. A. fib with RVR. IMAGING Imaging and Radiology interpretation reviewed. CXR FINDINGS: The heart is not enlarged. Mediastinum is not widened. No hilar masses seen. Lungs are clear of any infiltrates. There is no effusion or pneumothorax. The osseous structures appear normal. IMPRESSION: No evidence for active cardiopulmonary disease. Electronically viewed and signed by .Jaylon Melendez MD, on 06/03/2019 19:39 TREATMENT/DISPOSITION The patient presents for atrial fibrillation with rapid ventricular response. The patient required IV Cardizem to help with rate control. We ultimately did not need to start the infusion. However, this is now the patient's second emergency department visit since discharge. His symptoms are not being controlled at home, and I do feel the patient requires further assessment and management in the hospital. The patient's chest xray does not reveal pneumonia or pneumothorax or pleural effusions or pulmonary edema. The patient does not have a widened mediastinum and does not have signs or symptoms concerning for thoracic aortic aneurysm or dissection. The patient does not have pneumomediastinum or signs concerning for esophageal tear or rupture. The patient has no clinical or radiographic signs of pericardial effusion or tamponade. The patient does not have pneumoperitoneum and I have decreased suspicion of viscus perforation as possible referred pain. The patient does not have a history of heart failure and I have low suspicion for this. The patient does not have a diagnosis of COPD and is not wheezing today. The patient is not tachypneic or hypoxic. The patient is breathing comfortably and without pleuritic pain. The patient is not on hormonal therapy. The patient has no history of clotting or bleeding disorders. The patient has no calf tenderness. The patient has had no hemoptysis. I have decreased suspicion for PE. The patient's troponin and EKG are reassuring. I have low suspicion for acute coronary syndrome. The patient also reports a headache. I suspect that the patient's headache is related to his lightheadedness and palpitations. The patient has no focal deficits. The neurologic exam is reassuring. I have decreased suspicion for cerebral ischemia. There was no trauma or injury. There is no personal or family history of cerebral aneurysm. This is not the worst headache of the patient's life. It was not acutely severe. It is been progressive in nature. I have decreased suspicion for SAH or other ICH. I have low suspicion for temporal arteritis, cavernous venous thrombosis, subdural hematoma, epidural hematoma, meningitis. Differential diagnosis also includes migraine, tension headache, cluster headache, but my suspicion is low. ADMISSION At this time, I feel that the patient requires admission for further evaluation and management. The patient will be admitted to [Panel] in accordance with the patient's insurance. The patient was accepted by Dr. Dial at 9:45 PM on June 03, 2019. CRITICAL CARE NOTE Time: 32 minutes excluding all billable procedures. Treatments/Evaluations: The patient was at risk of hemodynamic compromise. Timing of critical care involved close serial monitoring, evaluation of the patient's medical record including previous records & current laboratory/imaging studies, potential interventions for prevention of hemodynamic/ cardiopulmonary/ neurologic compromise, maintaining tight fluid balance, and any discussions with the family and/or consultants regarding the patient's status and prognosis. Disclaimer: Inadvertent spelling and grammatical errors are likely due to EHR/dictation software use and do not reflect on the overall quality of patient care. Note that the electronic time recorded on this note does not necessarily reflect the actual time of the patient encounter. Departure Diagnosis: Primary Impression: Atrial fibrillation with rapid ventricular response Additional Impressions: Palpitations Lightheadedness Chest pressure Headache Headache type: unspecified Headache chronicity pattern: acute headache Intractability: not intractable Qualified Codes: R51 - Headache Condition: Serious ROCHELLE SWEENEY MD Jun 03, 2019 22:27
[2019-06-03] MEDS ORDERED: METOPROLOL 5 MG INJ IV PRN (23:30)
[2019-06-04] VITALS (7 sets, daily range): BP systolic 115–136; BP diastolic 66–84; PULSE 60–91; RESP 18–20; Ht 165.1 cm; Wt 93.4 kg
[2019-06-04] MEDS: ACETAMINOPHEN 325 MG TAB PO PRN ×3 (03:12→20:52)
--- NOTE | 2019-06-04 07:18 | HP ---
Date/Time of Note Date/Time of Note see and examined at DATE: 06/03/19 at 22:15 Assessment/Plan VTE Prophylaxis Pharmacological prophylaxis: rivaroxaban Lines/Catheters IV [facility] [place] Assessment/Plan Hospital Course This is a 54-year-old male being admitted to the telemetry floor for: #1 rapid A. fib with RVR: She was given a Cardizem bolus in the emergency department which did result in improvement in his rapid A. fib with RVR. He was also given mag IV. At the current time we will continue Toprol and Cardizem. I will give the Cardizem an hour after the Toprol to see if the patient does experience any headaches with the Cardizem. We will continue with Xarelto. Will consult cardiology . #2 headaches: CT of the head is negative for any acute on normalities. Patient was started on BuSpar previously for his anxiety which does have a side effect headaches. He also is on Cardizem which also causes a headache. At the current time I will discontinue his BuSpar. We will monitor to see if he continues to have headaches. #3 anxiety: We will discontinue BuSpar as patient is reporting headaches. PRN Ativan, consider antidepressant #4 obesity hemoglobin and TSH within normal values. Encourage diet and lifestyle modification #5 DVT GI prophylaxis: Xarelto, no GI prophylaxis indicated Further treatment strategy will be implemented as per the clinical course Result Diagram: 06/04/19 0551 06/04/19 0551 Results 24hrs Laboratory Tests Test 06/03/19 18:55 06/04/19 05:51 White Blood Count 7.8 7.2 Red Blood Count 5.02 4.75 Hemoglobin 14.9 14.2 Hematocrit 43.6 41.3 L Mean Corpuscular Volume 86.9 86.9 Mean Corpuscular Hemoglobin 29.7 29.9 Mean Corpuscular Hemoglobin Concent 34.2 34.4 Red Cell Distribution Width 12.5 12.6 Platelet Count 278 256 Mean Platelet Volume 11.3 H 11.7 H Immature Granulocytes % 0.100 0.300 Neutrophils % 70.3 58.2 Lymphocytes % 20.4 32.0 Monocytes % 6.7 6.7 Eosinophils % 2.1 2.5 Basophils % 0.4 0.3 Nucleated Red Blood Cells % 0.0 0.0 Immature Granulocytes # 0.010 0.020 Neutrophils # 5.5 4.2 Lymphocytes # 1.6 2.3 Monocytes # 0.5 0.5 Eosinophils # 0.2 0.2 Basophils # 0.0 0.0 Nucleated Red Blood Cells # 0.0 0.0 Prothrombin Time 17.1 #H Prothrombin Time Ratio 1.3 INR International Normalized Ratio 1.38 Sodium Level 141 142 Potassium Level 4.4 4.1 Chloride Level 107 109 Carbon Dioxide Level 24 25 Anion Gap 10 8 Blood Urea Nitrogen 19 15 Creatinine 1.12 0.90 Est Glomerular Filtrat Rate mL/min > 60 > 60 Glucose Level 107 98 Calcium Level 9.3 8.3 L Troponin I < 0.012 Magnesium Level 2.4 Total Bilirubin 0.6 Direct Bilirubin 0.00 Indirect Bilirubin 0.6 Aspartate Amino Transf (AST/SGOT) 19 Alanine Aminotransferase (ALT/SGPT) 37 Alkaline Phosphatase 44 Total Protein 6.4 Albumin 3.7 Globulin 2.70 Albumin/Globulin Ratio 1.37 HPI/ROS Admit Date/Time Admit Date/Time Jun 03, 2019 at 21:49 Hx of Present Illness Chief complaint: Headaches, elevated heart rate This is a 54-year-old male with a past medical history of hypertension, atrial fibrillation who is presenting again for intermittent waxing and waning midsternal pressure-like nonradiating moderate chest pain with significant palpitations, lightheadedness and a mild throbbing occipital headache radiating to the front bilaterally without photophobia or phonophobia or nausea. The patient also has intermittently checked his blood pressure at home which is found to be elevated. The patient was recently admitted to the hospital for new onset atrial fibrillation and started on multiple medications including Toprol- XL, Cardizem and Xarelto. Patient also is taking BuSpar. The patient reports taking these medications compliantly, but his symptoms have persisted. The patient was seen yesterday for similar symptoms, but he was rate controlled at the time. Patient was noted to be in rapid A. fib with RVR when he was in the emergency department. He was given Cardizem which did improve his heart rate. Allergies: NKDA Medications: BuSpar Xarelto Toprol-XL Cardizem ROS Const: As per HPI Eyes : No pain discharge or redness or change in visual acuity ENT: No pain, sore throat, congestion, congestion, dysphagia or discharge Respiratory: No shortness of breath, cough, sputum, wheezing, or pleuritic pain Cardiovascular: As per HPI GI : no change in appetite, abdominal pain, nausea, vomiting, diarrhea, constipation, or change in the color his stool Genitourinary: No dysuria, hematuria, flank pain , discharge or CVA tenderness Musculoskeletal: No joint pain, back pain, neck pain, restricted range of motion in neck or joints Skin: No rash, bruising or hives Neuro: No headache, dizziness, syncope, seizure, focal weakness Endocrine: No polyuria, polydipsia, temperature intolerance Psych: No hallucination, depression, anxiety or suicidal ideation PMH/Family/Social Past Medical History A. fib with RVR Anxiety Medications Current Medications Diltiazem HCl 125 ml @ 5 mls/hr ONCE STAT IV ; Start 06/03/19 at 21:02; Stop 06/04/19 at 22:01 Acetaminophen (Tylenol Tab) 650 mg Q6H PRN PO .PAIN 1-3 OR TEMP Last administered on 06/04/19at 03:12; Admin Dose 650 MG; Start 06/03/19 at 22:00 Diltiazem HCl (Cardizem) 30 mg QID PO ; Start 06/04/19 at 09:00 Metoprolol Succinate (Toprol Xl) 50 mg DAILY PO ; Start 06/04/19 at 09:00 Rivaroxaban (Xarelto) 20 mg WITH DINNER PO ; Start 06/04/19 at 18:00 IV Flush (NS 3 ml) 3 ml PER PROTOCOL IV ; Start 06/03/19 at 22:00 Ondansetron HCl (Zofran Inj) 4 mg Q6H PRN IV NAUSEA/VOMITING; Start 06/03/19 at 22:00 Acetaminophen (Tylenol Tab) 650 mg Q6H PRN PO .PAIN 1-3 OR TEMP; Start 06/03/19 at 22:00 Docusate Sodium (Colace) 100 mg Q12H PRN PO .CONSTIPATION; Start 06/03/19 at 22:00 Bisacodyl (Dulcolax) 5 mg DAILY PRN PO .CONSTIPATION; Start 06/03/19 at 22:00 Ondansetron HCl (Zofran Inj) 4 mg ER BRIDGE PRN IV NAUSEA/VOMITING; Start 06/03/19 at 22:30; Stop 06/04/19 at 22:29 Acetaminophen (Tylenol Tab) 650 mg ER BRIDGE PRN PO .MILD PAIN 1-3 OR TEMP; Start 06/03/19 at 22:30; Stop 06/04/19 at 22:29 Metoprolol Tartrate (Lopressor) 2.5 mg Q6H PRN IV HR GREATER THAN 115 SUSTAINED; Start 06/03/19 at 23:30 Coded Allergies: No Known Allergy (Unverified , 06/03/19) Past Surgical History Past Surgical Hx: no surgical history Family History Significant Family History: no pertinent family hx, hypertension Social History Alcohol Use: none Smoking Status: Never smoker Drug Use: none Exam/Review of Systems Vital Signs Vitals Vital Signs Date Temp Pulse Resp B/P (MAP) Pulse Ox O2 O2 Flow FiO2 Time Delivery Rate 06/04/19 98.1 18 115/81 96 04:00 (92) 06/04/19 64 00:16 06/03/19 Room Air 23:53 Intake and Output 06/03/19 06/03/19 06/04/19 1515:00 23:00 07:00 IntakeIntake Total 500 ml BalanceBalance 500 ml Exam Exam General: Patient is currently sitting in bed he does appear to be anxious HEENT: Atraumatic, normocephalic. The pupils are equal, round and reactive. Extraocular motor are intact Neck: Supple with full range of motion. No rigidity or meningismus Chest: Nontender Lungs: Clear to auscultation bilaterally no crackles rales or wheezing Heart: Irregularly irregular, currently rate controlled Abdomen: Soft , nontender, nondistended , bowel sounds are present. No guarding no rebound tenderness , No masses or organomegaly. No costovertebral temporal angle mass Extremities: Normal to inspection, no edema no cyanosis Neurologic: Normal mental status, speech normal, cranial nerves II through XII are intact, motor and sensory are intact, Psych: Anxious Additional Comments PROCEDURE: CT Brain without contrast. CLINICAL INDICATION: Headache TECHNIQUE: CT scan of the brain was performed on a multidetector high-r esolution CT scan. Axial imaging was obtained of the brain without contrast administration. Coronal and sagittal reformatted images were obtained from the axial source images. Standard CT scan of the head without contrast protocols were performed. The total exam CTDI equals 39.64 mGy and the total exam DLP equals 634.23 mGy- cm. One or more of the following dose reduction techniques were used: - Automated exposure control. - Adjustment of the mA and/or kV according to patient size. Use of iterative reconstruction technique. Dicom images are available COMPARISON: None. FINDINGS: The ventricular system and peripheral CSF spaces are unremarkable. No evidence of intracranial masses hemorrhages the diaz-white matter differentiation is unremarkable. There is a 1.5 cm inferior right maxillary sinus mucous retention cyst. Remainder the paranasal sinuses and mastoids are unremarkable. The bones of the calvarium are intact. IMPRESSION: No evidence of intracranial masses hemorrhages or midline shift. RPTAT:AAJJ Physician Unique Date Time Electronically viewed and signed by Physician Unique on 06/02/2019 03:20 BM/ CC: SUMIT ACOSTA PA-C [id number] PROCEDURE: XR Chest. CLINICAL INDICATION: Syncope TECHNIQUE: Frontal chest x-ray was obtained. COMPARISON: Chest x-ray May 26, 2019 FINDINGS: The heart is not enlarged. Mediastinum is not widened. No hilar masses seen. Lungs are clear of any infiltrates. There is no effusion or pneumothorax. The osseous structures appear normal. IMPRESSION: No evidence for active cardiopulmonary disease. .Jaylon Melendez MD, MD Date Time Electronically viewed and signed by .Jaylon Melendez MD, MD on 06/03/2019 19:39 .A/ CC: ROCHELLE SWEENEY MD [id number] MIRANDA STRATTON Jun 04, 2019 07:18
[2019-06-04] MEDS: DILTIAZEM 30 MG TAB PO SCH ×4 (08:26→20:52)
[2019-06-04] MEDS ORDERED: BUSPIRONE 5 MG TAB PO SCH (09:00)
[2019-06-04] MEDS ORDERED: METOPROLOL (XL) 50 MG TAB PO SCH ×2 (09:00→10:00)
--- NOTE | 2019-06-04 09:54 | CONS ---
Assessment/Plan Assessment/Plan Hospital Course (Demo Recall) Atrial fibrillation rapid ventricular response Mild hypertension Possible hypertrophic cardiomyopathy Headache, ? Sinusitis versus others Recommendations We will increase the Toprol-XL to try to control the heart rate better. IV fluids will be given. Echo was recently done CONT XARELTO PENG ( which appears to be pt's repeated cheif complaints) work up as per IM. thank you THEODORA MIN MD Consultation Date/Type/Reason Admit Date/Time Jun 03, 2019 at 21:49 Date of Consultation: Jun 04, 2019 Type of Consult Cardiology Reason for Consultation AFIB Requesting Provider: MIRANDA STRATTON Date/Time of Note DATE: 06/04/19 TIME: 09:50 Hx of Present Illness Interventional cardiology consultation note Chief complaint: Palpitation headache Reason for consult: Atrial fibrillation History of present illness: Thank you for this referral. History was informed the patient discussion with staff and REVIEW OF OLD CHART. This is a pleasant 54-year-old gentleman with history of atrial fibrillation who came to the emergency above complaint. Patient stated last night he started having headache. He was having heavy pounding in his chest he was going fast . In the emergency room he was noted to be atrial fibrillation with ventricular response. Heart rate has responded well to medication and currently has been better controlled. Review of the old chart showed patient has had multiple admission to the hospital ER visit for headache. No bleeding is reported head CT was done a week ago Allergies: No known drug allergies Medications Xarelto Toprol Cardizem Family history: Sister with CVA during her Social history: Does not smoke. Occasional use alcohol but denies any heavy use Past medical history: A. fib. Possible hypertrophic cardiomyopathy Past Medical History Home Meds Active Scripts Naproxen* (Naprosyn*) 500 Mg Tablet, 500 MG PO BID PRN for PAIN AND/OR INFLAMMATION, #30 TAB Prov:SUMIT ACOSTA PA-C 06/02/19 Buspirone Hcl* (Buspirone Hcl*) 5 Mg Tab, 5 MG PO BID for 14 Days, #30 TAB Prov:COREY ROD MD 05/28/19 Metoprolol Succinate* (Toprol XL*) 50 Mg Tab.er.24h, 50 MG PO DAILY for 14 Days, #15 Prov:COREY ROD MD 05/28/19 Diltiazem Hcl* (Cardizem*) 30 Mg Tablet, 30 MG PO QID for 10 Days, #40 TAB Prov:COREY ROD MD 05/28/19 Rivaroxaban* (Xarelto*) 20 Mg Tablet, 20 MG PO WITH DINNER for 30 Days, #30 TAB 1 Refill Prov:COREY ROD MD 05/27/19 Acetaminophen* (Tylenol*) 325 Mg Tablet, 650 MG PO Q6H PRN for .PAIN 1-3 OR TEMP for 1 Day, TAB Prov:COREY ROD MD 05/27/19 Discontinued Scripts Rivaroxaban* (Xarelto*) 20 Mg Tablet, 20 MG PO WITH DINNER for 30 Days, #30 TAB Prov:COREY ROD MD 05/28/19 Medications Current Medications Diltiazem HCl 125 ml @ 5 mls/hr ONCE STAT IV ; Start 06/03/19 at 21:02; Stop 06/04/19 at 22:01 Acetaminophen (Tylenol Tab) 650 mg Q6H PRN PO .PAIN 1-3 OR TEMP Last administered on 06/04/19at 03:12; Admin Dose 650 MG; Start 06/03/19 at 22:00 Diltiazem HCl (Cardizem) 30 mg QID PO Last administered on 06/04/19at 08:26; Admin Dose 30 MG; Start 06/04/19 at 09:00 Rivaroxaban (Xarelto) 20 mg WITH DINNER PO ; Start 06/04/19 at 18:00 IV Flush (NS 3 ml) 3 ml PER PROTOCOL IV ; Start 06/03/19 at 22:00 Ondansetron HCl (Zofran Inj) 4 mg Q6H PRN IV NAUSEA/VOMITING; Start 06/03/19 at 22:00 Acetaminophen (Tylenol Tab) 650 mg Q6H PRN PO .PAIN 1-3 OR TEMP; Start 06/03/19 at 22:00 Docusate Sodium (Colace) 100 mg Q12H PRN PO .CONSTIPATION; Start 06/03/19 at 22:00 Bisacodyl (Dulcolax) 5 mg DAILY PRN PO .CONSTIPATION; Start 06/03/19 at 22:00 Metoprolol Tartrate (Lopressor) 2.5 mg Q6H PRN IV HR GREATER THAN 115 SUSTAINED; Start 06/03/19 at 23:30 Metoprolol Succinate (Toprol Xl) 50 mg DAILY PO ; Start 06/04/19 at 10:00 Lorazepam (Ativan) 0.5 mg BID PRN PO ANXIETY; Start 06/04/19 at 07:30 Allergies: Coded Allergies: No Known Allergy (Unverified , 06/03/19) Past Surgical History Past Surgical Hx: no surgical history Social History Alcohol Use: none Smoking Status: Never smoker Drug Use: none Exam/Review of Systems Vital Signs Vitals Vital Signs Date Temp Pulse Resp B/P (MAP) Pulse Ox O2 O2 Flow FiO2 Time Delivery Rate 06/04/19 97.6 91 18 120/82 93 Nasal 2.0 08:26 (95) Cannula Intake and Output 06/03/19 06/03/19 06/04/19 1515:00 23:00 07:00 IntakeIntake Total 500 ml BalanceBalance 500 ml Exam Exam General: no acute distress HEENT: NC/AT. pupils are equal. round. NECK: NO JVD. no stridor. CV: Irregularly irregular. systolic murmur; no gallop or rubs. PULM: no wheezing or rhonchi. GI: SOFT, NT, ND, no rebound or guarding Extremity: trace B/L LE edema. no clubbing. neuro: awake and alert, OX3. Psych: calm and pleasant rectal: deferred : normal Patient atrial fibrillation with ventricular response. Labs Result Diagram: 06/04/19 0551 06/04/19 0551 Results 24hrs Laboratory Tests Test 06/03/19 18:55 06/04/19 05:51 White Blood Count 7.8 7.2 Red Blood Count 5.02 4.75 Hemoglobin 14.9 14.2 Hematocrit 43.6 41.3 L Mean Corpuscular Volume 86.9 86.9 Mean Corpuscular Hemoglobin 29.7 29.9 Mean Corpuscular Hemoglobin Concent 34.2 34.4 Red Cell Distribution Width 12.5 12.6 Platelet Count 278 256 Mean Platelet Volume 11.3 H 11.7 H Immature Granulocytes % 0.100 0.300 Neutrophils % 70.3 58.2 Lymphocytes % 20.4 32.0 Monocytes % 6.7 6.7 Eosinophils % 2.1 2.5 Basophils % 0.4 0.3 Nucleated Red Blood Cells % 0.0 0.0 Immature Granulocytes # 0.010 0.020 Neutrophils # 5.5 4.2 Lymphocytes # 1.6 2.3 Monocytes # 0.5 0.5 Eosinophils # 0.2 0.2 Basophils # 0.0 0.0 Nucleated Red Blood Cells # 0.0 0.0 Prothrombin Time 17.1 #H Prothrombin Time Ratio 1.3 INR International Normalized Ratio 1.38 Sodium Level 141 142 Potassium Level 4.4 4.1 Chloride Level 107 109 Carbon Dioxide Level 24 25 Anion Gap 10 8 Blood Urea Nitrogen 19 15 Creatinine 1.12 0.90 Est Glomerular Filtrat Rate mL/min > 60 > 60 Glucose Level 107 98 Calcium Level 9.3 8.3 L Troponin I < 0.012 Magnesium Level 2.4 Total Bilirubin 0.6 Direct Bilirubin 0.00 Indirect Bilirubin 0.6 Aspartate Amino Transf (AST/SGOT) 19 Alanine Aminotransferase (ALT/SGPT) 37 Alkaline Phosphatase 44 Total Protein 6.4 Albumin 3.7 Globulin 2.70 Albumin/Globulin Ratio 1.37 Medications Medications Current Medications Diltiazem HCl 125 ml @ 5 mls/hr ONCE STAT IV ; Start 06/03/19 at 21:02; Stop 06/04/19 at 22:01 Acetaminophen (Tylenol Tab) 650 mg Q6H PRN PO .PAIN 1-3 OR TEMP Last administered on 06/04/19at 03:12; Admin Dose 650 MG; Start 06/03/19 at 22:00 Diltiazem HCl (Cardizem) 30 mg QID PO Last administered on 06/04/19at 08:26; Admin Dose 30 MG; Start 06/04/19 at 09:00 Rivaroxaban (Xarelto) 20 mg WITH DINNER PO ; Start 06/04/19 at 18:00 IV Flush (NS 3 ml) 3 ml PER PROTOCOL IV ; Start 06/03/19 at 22:00 Ondansetron HCl (Zofran Inj) 4 mg Q6H PRN IV NAUSEA/VOMITING; Start 06/03/19 at 22:00 Acetaminophen (Tylenol Tab) 650 mg Q6H PRN PO .PAIN 1-3 OR TEMP; Start 06/03/19 at 22:00 Docusate Sodium (Colace) 100 mg Q12H PRN PO .CONSTIPATION; Start 06/03/19 at 22:00 Bisacodyl (Dulcolax) 5 mg DAILY PRN PO .CONSTIPATION; Start 06/03/19 at 22:00 Metoprolol Tartrate (Lopressor) 2.5 mg Q6H PRN IV HR GREATER THAN 115 SUSTAINED; Start 06/03/19 at 23:30 Metoprolol Succinate (Toprol Xl) 50 mg DAILY PO ; Start 06/04/19 at 10:00 Lorazepam (Ativan) 0.5 mg BID PRN PO ANXIETY; Start 06/04/19 at 07:30 THEODORA MIN MD Jun 04, 2019 09:54
[2019-06-04] MEDS: METOPROLOL (XL) 50 MG TAB PO SCH ×2 (10:29→20:52)
--- NOTE | 2019-06-04 13:53 | PN ---
Date/Time of Note Date/Time of Note DATE: 06/04/19 TIME: 13:43 Assessment/Plan VTE Prophylaxis Risk score (from Nsg)>0 risk: 3 SCD applied (from Ns): Yes Pharmacological prophylaxis: rivaroxaban Lines/Catheters IV Catheter Type (from Nrsg): Saline Lock Assessment/Plan Assessment/Plan 54 yo man with new A fib admitted for RVR and headache. # rapid A. fib with RVR: - Metoprolol, diltiazem. - Xarelto for anticoagulation. - Potential cardioversion in the future. - Dr. Arambula following # headaches: - CT head shows 1.5 cm maxillary retention cyst - However patient denies sinus symptoms, so I doubt this is contributing to his discomfort. - No red flag symptoms. - He has a very energetic family situation. Patient would benefit from a little peace and quiet. - tylenol, ibuprofen for tension headache. # anxiety: We will discontinue BuSpar as patient is reporting headaches. PRN Ativan, consider antidepressant # obesity: hemoglobin and TSH within normal values. Encourage diet and lifestyle modification # DVT GI prophylaxis: Xarelto, no GI prophylaxis indicated Dispo: Anticipate discharge in 24-48 hrs. Result Diagram: 06/04/19 0551 06/04/19 0551 Subjective 24 Hr Interval Summary Free Text/Dictation Overnight on telemetry, patient in A fib with RVR to 130s. This morning down to low 90s. This morning he continues to complain of tension-type headache, aching, says it "radiates up from my chest to the middle of my forehead and goes back to the middle of my scalp" when he has palpitations. The patient was on the phone with his insurance company. Joining him in the room were his who was very pleasant and his two children who were playing with some remarkably loud electronic toys. Exam/Review of Systems Exam Vitals Vital Signs Date Temp Pulse Resp B/P (MAP) Pulse Ox O2 O2 Flow FiO2 Time Delivery Rate 06/04/19 97.6 85 19 136/83 95 Room Air 11:30 (100) 06/04/19 2.0 08:26 Intake and Output 06/03/19 06/03/19 06/04/19 1515:00 23:00 07:00 IntakeIntake Total 500 ml BalanceBalance 500 ml Exam General: Patient is currently sitting in bed he does appear to be anxious HEENT: Atraumatic, normocephalic. The pupils are equal, round and reactive. Extraocular motor are intact Neck: Supple with full range of motion. No rigidity or meningismus Chest: Nontender Lungs: Clear to auscultation bilaterally no crackles rales or wheezing Heart: Irregularly irregular, currently rate controlled. No murmurs. Abdomen: Soft , nontender, nondistended , bowel sounds are present. No guarding no rebound tenderness , No masses or organomegaly. No costovertebral temporal angle mass Extremities: Normal to inspection, no edema no cyanosis Psych: Anxious. Compulsive speech, often repeating himself. Results Results 24hrs Laboratory Tests Test 06/03/19 18:55 06/04/19 05:51 White Blood Count 7.8 7.2 Red Blood Count 5.02 4.75 Hemoglobin 14.9 14.2 Hematocrit 43.6 41.3 L Mean Corpuscular Volume 86.9 86.9 Mean Corpuscular Hemoglobin 29.7 29.9 Mean Corpuscular Hemoglobin Concent 34.2 34.4 Red Cell Distribution Width 12.5 12.6 Platelet Count 278 256 Mean Platelet Volume 11.3 H 11.7 H Immature Granulocytes % 0.100 0.300 Neutrophils % 70.3 58.2 Lymphocytes % 20.4 32.0 Monocytes % 6.7 6.7 Eosinophils % 2.1 2.5 Basophils % 0.4 0.3 Nucleated Red Blood Cells % 0.0 0.0 Immature Granulocytes # 0.010 0.020 Neutrophils # 5.5 4.2 Lymphocytes # 1.6 2.3 Monocytes # 0.5 0.5 Eosinophils # 0.2 0.2 Basophils # 0.0 0.0 Nucleated Red Blood Cells # 0.0 0.0 Prothrombin Time 17.1 #H Prothrombin Time Ratio 1.3 INR International Normalized Ratio 1.38 Sodium Level 141 142 Potassium Level 4.4 4.1 Chloride Level 107 109 Carbon Dioxide Level 24 25 Anion Gap 10 8 Blood Urea Nitrogen 19 15 Creatinine 1.12 0.90 Est Glomerular Filtrat Rate mL/min > 60 > 60 Glucose Level 107 98 Calcium Level 9.3 8.3 L Troponin I < 0.012 Magnesium Level 2.4 Total Bilirubin 0.6 Direct Bilirubin 0.00 Indirect Bilirubin 0.6 Aspartate Amino Transf (AST/SGOT) 19 Alanine Aminotransferase (ALT/SGPT) 37 Alkaline Phosphatase 44 Total Protein 6.4 Albumin 3.7 Globulin 2.70 Albumin/Globulin Ratio 1.37 Medications Medication Current Medications Acetaminophen (Tylenol Tab) 650 mg Q6H PRN PO .PAIN 1-3 OR TEMP Last administered on 06/04/19at 10:29; Admin Dose 650 MG; Start 06/03/19 at 22:00 Diltiazem HCl (Cardizem) 30 mg QID PO Last administered on 06/04/19at 13:09; Admin Dose 30 MG; Start 06/04/19 at 09:00 Rivaroxaban (Xarelto) 20 mg WITH DINNER PO ; Start 06/04/19 at 18:00 IV Flush (NS 3 ml) 3 ml PER PROTOCOL IV ; Start 06/03/19 at 22:00 Ondansetron HCl (Zofran Inj) 4 mg Q6H PRN IV NAUSEA/VOMITING; Start 06/03/19 at 22:00 Acetaminophen (Tylenol Tab) 650 mg Q6H PRN PO .PAIN 1-3 OR TEMP; Start 06/03/19 at 22:00 Docusate Sodium (Colace) 100 mg Q12H PRN PO .CONSTIPATION; Start 06/03/19 at 22:00 Bisacodyl (Dulcolax) 5 mg DAILY PRN PO .CONSTIPATION; Start 06/03/19 at 22:00 Metoprolol Tartrate (Lopressor) 2.5 mg Q6H PRN IV HR GREATER THAN 115 SUSTAINED; Start 06/03/19 at 23:30 Lorazepam (Ativan) 0.5 mg BID PRN PO ANXIETY; Start 06/04/19 at 07:30 Metoprolol Succinate (Toprol Xl) 50 mg BID PO Last administered on 06/04/19at 10:29; Admin Dose 50 MG; Start 06/04/19 at 10:00 Ibuprofen (Motrin) 600 mg Q6H PRN PO headache; Start 06/04/19 at 14:00; Status UNRICK DOTY MD Jun 04, 2019 13:53
[2019-06-04] MEDS: IBUPROFEN 800 MG TAB PO PRN (15:06)
[2019-06-04] MEDS: RIVAROXABAN 20 MG TABLET PO SCH (17:11)
[2019-06-04] MEDS ORDERED: HYDROCODONE/APAP (5/325) TAB PO ONE (18:00)
[2019-06-04] MEDS: LORAZEPAM 0.5 MG TAB PO PRN (23:02)
[2019-06-05 03:36] VITALS: BP 121/66; PULSE 67; RESP 20
[2019-06-05 07:11] VITALS: BP 112/79; PULSE 68; RESP 20
[2019-06-05] MEDS: METOPROLOL (XL) 50 MG TAB PO SCH ×2 (08:33→20:05)
[2019-06-05] MEDS: DILTIAZEM 30 MG TAB PO SCH ×4 (08:33→20:05)
[2019-06-05] MEDS: LORAZEPAM 0.5 MG TAB PO PRN ×2 (09:26→20:05)
[2019-06-05 11:44] VITALS: BP 119/65; PULSE 72; RESP 20
[2019-06-05] MEDS ORDERED: METO-319 PO (11:47)
[2019-06-05] MEDS ORDERED: LORA-441 PO (11:47)
[2019-06-05] MEDS ORDERED: BUTA1CAP38 PO (11:47)
--- NOTE | 2019-06-05 12:02 | PDOCDIS ---
Discharge Instructions CONDITION [id number] Patient Condition: [id number] Stable HOME CARE INSTRUCTIONS: [id number] Diet Instructions: [id number] Low Fat /Cholesterol FOLLOW UP/APPOINTMENTS Follow-up Plan Follow-up with outpatient cardiology as scheduled. OTHER ORDERS: Other Orders: 1. Take medications as per prescription. Stop taking BuSpar. 2. Take a low-cholesterol diet. 3. Resume activities as tolerated. 4. Follow-up with outpatient cardiology as scheduled. 5. Please go to the nearest emergency room if you have any chest pain, palpitations, significant shortness of breath, or any other unusual signs/symptoms. JOHNNY HUERTA NP Jun 05, 2019 12:02
--- NOTE | 2019-06-05 12:08 | DS ---
Date/Time of Note Date/Time of Note DATE: 06/05/19 TIME: 12:06 Discharge Summary Admission/Discharge Info Admit Date/Time Jun 03, 2019 at 21:49 Discharge Date/Time Discharge Diagnosis 1. A. fib with RVR. 2. Hypertension. 3. Suspect hypertensive cardiomyopathy. 4. Cephalgia. 5. Anxiety disorder. 6. Obesity. BMI 34 kg/m. Patient Condition: Stable Consults 1. Judah Arambula MD, Cardiology. Procedures CXR IMPRESSION: No evidence for active cardiopulmonary disease. Hx of Present Illness This is a 54-year-old male with past medical history of anxiety disorder, hypertension, paroxysmal atrial fibrillation, and obesity who was started on beta-blockers, calcium channel blockers, and Xarelto on his previous hospitalization at [facility] and was discharged home, to be followed up with outpatient cardiology for cardioversion in the near future. Patient returned back to the emergency room multiple times complaining of headache. On his visit on 06/03/2019, the patient was noticed to be in atrial fibrillation with rapid ventricular response in the emergency room. Therefore, a clinical decision was made to admit this patient to inpatient setting for further treatment and evaluation. Hospital Course The patient was admitted to telemetry floor. The patient's rate was controlled after IV Cardizem in the emergency room. The patient was evaluated by cardiology. The patient's beta-darren dosing was increased. The patient continues to be in controlled atrial fibrillation. The patient was continued on Xarelto for therapeutic anticoagulation. The patient has underlying mild hypertension and suspected hypertensive cardiomyopathy as per the 2D echoc ardiogram done on his prior visit to [facility]. The patient's antihypertensives were adjusted as per cardiology recommendations. One of the patient's chief complaints upon hospitalization was headache. Etiology of the patient's headache is unclear. The patient's brain CT scan that was done on 06/02/2019 was negative for any acute findings other than a 1.5 cm in ferior right maxillary sinus mucous retention cyst. It is highly likely that the patient has underlying tension headache. The patient was also started on BuSpar during his previous hospitalization. This was discontinued as this may trigger headaches. The patient was maintained on PRN benzodiazepines with improvement in the patient's headache. The patient is also obese with a BMI of more than 34 kilogram per meter squared. The patient was advised weight reduction. The patient's headache is more or less controlled with anxiolytic therapy. The patient's beta-darren dosing has been increased. The patient is stable to be discharged home on PRN anxiolytics and Fioricet for any headache episodes. Discharge Instructions 1. Take medications as per prescription. Stop taking BuSpar. 2. Take a low-cholesterol diet. 3. Resume activities as tolerated. 4. Follow-up with outpatient cardiology as scheduled. 5. Please go to the nearest emergency room if you have any chest pain, palpitations, significant shortness of breath, or any other unusual signs/symptoms. The patient verbalized understanding of his discharge instructions. At this time I would like to thank Dr. Arambula for seeing the patient and providing clinical recommendations. The patient was seen in collaboration with . Home Meds Active Scripts Aqlbhiiyza-Vcagtojwaqlyt-Edfybtxo* (Fioricet*) 50-300-40 Mg Capsule, 1 CAP PO Q6H PRN for HEADACHE, #10 CAP Prov:JOHNNY HUERTA NP 06/05/19 Lorazepam* (Ativan*) 0.5 Mg Tablet, 0.5 MG PO BID PRN for ANXIETY, #10 TAB Prov:JOHNNY HUERTA NP 06/05/19 Metoprolol Succinate* (Toprol XL*) 50 Mg Tab.er.24h, 50 MG PO BID, #30 TAB Prov:JOHNNY HUERTA NP 06/05/19 Diltiazem Hcl* (Cardizem*) 30 Mg Tablet, 30 MG PO QID for 10 Days, #40 TAB Prov:COREY ROD MD 05/28/19 Rivaroxaban* (Xarelto*) 20 Mg Tablet, 20 MG PO WITH DINNER for 30 Days, #30 TAB 1 Refill Prov:COREY ROD MD 05/27/19 Acetaminophen* (Tylenol*) 325 Mg Tablet, 650 MG PO Q6H PRN for .PAIN 1-3 OR TEMP for 1 Day, TAB Prov:COREY ROD MD 05/27/19 Discontinued Scripts Naproxen* (Naprosyn*) 500 Mg Tablet, 500 MG PO BID PRN for PAIN AND/OR INFLAMMATION, #30 TAB Prov:SUMIT ACOSTA PA-C 06/02/19 Buspirone Hcl* (Buspirone Hcl*) 5 Mg Tab, 5 MG PO BID for 14 Days, #30 TAB Prov:COREY ROD MD 05/28/19 Metoprolol Succinate* (Toprol XL*) 50 Mg Tab.er.24h, 50 MG PO DAILY for 14 Days, #15 Prov:COREY ROD MD 05/28/19 Rivaroxaban* (Xarelto*) 20 Mg Tablet, 20 MG PO WITH DINNER for 30 Days, #30 TAB Prov:COREY ROD MD 05/28/19 Follow-up Plan Follow-up with outpatient cardiology as scheduled. Primary Care Provider [facility] Time spent on discharge: > 30 minutes Pending Labs Laboratory Tests Test 06/05/19 05:35 White Blood Count 9.3 10^3/ul (4.8-10.8) Red Blood Count 4.93 10^6/ul (4.70-6.10) Hemoglobin 14.6 g/dl (14.0-18.0) Hematocrit 42.3 % (42.0-52.0) Mean Corpuscular Volume 85.8 fl (82.0-101.0) Mean Corpuscular Hemoglobin 29.6 pg (29.0-33.0) Mean Corpuscular Hemoglobin Concent 34.5 g/dl (32.0-37.0) Red Cell Distribution Width 12.5 % (11.5-14.5) Platelet Count 266 10^3/UL (140-415) Mean Platelet Volume 11.5 fl (7.4-10.4) Immature Granulocytes % 0.200 % (0.001-0.429) Neutrophils % 61.9 % (39.0-77.0) Lymphocytes % 29.4 % (15.0-51.0) Monocytes % 6.4 % (0.0-11.0) Eosinophils % 1.7 % (0.0-7.0) Basophils % 0.4 % (0.0-2.0) Nucleated Red Blood Cells % 0.0 /100WBC (0.0-0.0) Immature Granulocytes # 0.020 10^3/ul (0.0-0.031) Neutrophils # 5.8 10^3/ul (1.6-7.5) Lymphocytes # 2.7 10^3/ul (0.8-2.9) Monocytes # 0.6 10^3/ul (0.3-0.9) Eosinophils # 0.2 10^3/ul (0.0-0.5) Basophils # 0.0 10^3/ul (0.0-0.1) Nucleated Red Blood Cells # 0.0 10^3/ul (0.0-0.0) Sodium Level 141 mmol/L (135-144) Potassium Level 4.4 mmol/L (3.5-5.1) Chloride Level 108 mmol/L (97-110) Carbon Dioxide Level 25 mmol/L (21-31) Anion Gap 8 (5-13) Blood Urea Nitrogen 12 mg/dl (7-20) Creatinine 0.87 mg/dl (0.61-1.24) Est Glomerular Filtrat Rate mL/min > 60 mL/min (>60) Glucose Level 92 mg/dl (70-220) Calcium Level 8.7 mg/dl (8.4-10.2) Total Bilirubin 0.5 mg/dl (0.2-1.3) Direct Bilirubin 0.00 mg/dl (0.00-0.20) Indirect Bilirubin 0.5 mg/dl (0-1.1) Aspartate Amino Transf (AST/SGOT) 19 IU/L (15-46) Alanine Aminotransferase (ALT/SGPT) 27 IU/L (13-69) Alkaline Phosphatase 46 IU/L (42-121) Total Protein 6.6 g/dl (6.1-8.1) Albumin 3.8 g/dl (3.3-4.9) Globulin 2.80 g/dl (1.3-3.2) Albumin/Globulin Ratio 1.35 JOHNNY HUERTA NP Jun 05, 2019 12:08
[2019-06-05 15:22] VITALS: BP 110/68; PULSE 75; RESP 20
[2019-06-05] MEDS: RIVAROXABAN 20 MG TABLET PO SCH (17:19)
--- NOTE | 2019-06-05 18:01 | CONS ---
Consult Date/Type/Reason Admit Date/Time Jun 03, 2019 at 21:49 Initial Consult Date 06/04/19 Type of Consultation: cv Reason for Consultation Cardiology follow-up progress Subjective: Discussed with staff telemetry was reviewed patient has many atrial fibrillation heart rate is under much better controlled No chest pain or pressure no palpitation No PND orthopnea Patient states he is headache has significantly improved now Objective: General: no acute distress HEENT: NC/AT. pupils are equal. round. NECK: NO JVD. no stridor. CV: Irregularly irregular. systolic murmur; no gallop or rubs. PULM: no wheezing or rhonchi. GI: SOFT, NT, ND, no rebound or guarding Extremity: trace B/L LE edema. no clubbing. neuro: awake and alert, OX3. Psych: calm and pleasant rectal: deferred : normal Requesting Provider: MIRANDA STRATTON Date/Time of Note DATE: 06/05/19 TIME: 17:59 Objective Vitals Vital Signs Date Temp Pulse Resp B/P (MAP) Pulse Ox O2 O2 Flow FiO2 Time Delivery Rate 06/05/19 98.0 75 20 110/68 97 Room Air 15:22 (82) 06/04/19 2.0 08:26 Intake and Output 06/04/19 06/04/19 06/05/19 1515:00 23:00 07:00 IntakeIntake Total 200 ml 940 ml OutputOutput Total 400 ml 600 ml 800 ml BalanceBalance -200 ml 340 ml -800 ml Results/Medications Result Diagram: 06/05/19 0535 06/05/19 0535 Results 24 hrs Laboratory Tests Test 06/05/19 05:35 White Blood Count 9.3 # Red Blood Count 4.93 Hemoglobin 14.6 Hematocrit 42.3 Mean Corpuscular Volume 85.8 Mean Corpuscular Hemoglobin 29.6 Mean Corpuscular Hemoglobin Concent 34.5 Red Cell Distribution Width 12.5 Platelet Count 266 Mean Platelet Volume 11.5 H Immature Granulocytes % 0.200 Neutrophils % 61.9 Lymphocytes % 29.4 Monocytes % 6.4 Eosinophils % 1.7 Basophils % 0.4 Nucleated Red Blood Cells % 0.0 Immature Granulocytes # 0.020 Neutrophils # 5.8 Lymphocytes # 2.7 Monocytes # 0.6 Eosinophils # 0.2 Basophils # 0.0 Nucleated Red Blood Cells # 0.0 Sodium Level 141 Potassium Level 4.4 Chloride Level 108 Carbon Dioxide Level 25 Anion Gap 8 Blood Urea Nitrogen 12 Creatinine 0.87 Est Glomerular Filtrat Rate mL/min > 60 Glucose Level 92 Calcium Level 8.7 Total Bilirubin 0.5 Direct Bilirubin 0.00 Indirect Bilirubin 0.5 Aspartate Amino Transf (AST/SGOT) 19 Alanine Aminotransferase (ALT/SGPT) 27 Alkaline Phosphatase 46 Total Protein 6.6 Albumin 3.8 Globulin 2.80 Albumin/Globulin Ratio 1.35 Home Meds Active Scripts Wbbxvqdwse-Fusfjlzmumafl-Cunbdaoo* (Fioricet*) 50-300-40 Mg Capsule, 1 CAP PO Q6H PRN for HEADACHE, #10 CAP Prov:JOHNNY HUERTA NP 06/05/19 Lorazepam* (Ativan*) 0.5 Mg Tablet, 0.5 MG PO BID PRN for ANXIETY, #10 TAB Prov:JOHNNY HUERTA NP 06/05/19 Metoprolol Succinate* (Toprol XL*) 50 Mg Tab.er.24h, 50 MG PO BID, #30 TAB Prov:JOHNNY HUERTA NP 06/05/19 Diltiazem Hcl* (Cardizem*) 30 Mg Tablet, 30 MG PO QID for 10 Days, #40 TAB Prov:COREY ROD MD 05/28/19 Rivaroxaban* (Xarelto*) 20 Mg Tablet, 20 MG PO WITH DINNER for 30 Days, #30 TAB 1 Refill Prov:COREY ROD MD 05/27/19 Acetaminophen* (Tylenol*) 325 Mg Tablet, 650 MG PO Q6H PRN for .PAIN 1-3 OR TEMP for 1 Day, TAB Prov:COREY ROD MD 05/27/19 Discontinued Scripts Naproxen* (Naprosyn*) 500 Mg Tablet, 500 MG PO BID PRN for PAIN AND/OR INFLAMMATION, #30 TAB Prov:SUMIT ACOSTA PA-C 06/02/19 Buspirone Hcl* (Buspirone Hcl*) 5 Mg Tab, 5 MG PO BID for 14 Days, #30 TAB Prov:COREY ROD MD 05/28/19 Metoprolol Succinate* (Toprol XL*) 50 Mg Tab.er.24h, 50 MG PO DAILY for 14 Days, #15 Prov:COREY ROD MD 05/28/19 Rivaroxaban* (Xarelto*) 20 Mg Tablet, 20 MG PO WITH DINNER for 30 Days, #30 TAB Prov:COREY ROD MD 05/28/19 Medications Current Medications Acetaminophen (Tylenol Tab) 650 mg Q6H PRN PO .PAIN 1-3 OR TEMP Last administered on 06/04/19at 20:52; Admin Dose 650 MG; Start 06/03/19 at 22:00 Diltiazem HCl (Cardizem) 30 mg QID PO Last administered on 06/05/19 17:19; Adm in Dose 30 MG; Start 06/04/19 at 09:00 Rivaroxaban (Xarelto) 20 mg WITH DINNER PO Last administered on 06/05/19 17:19; Admin Dose 20 MG; Start 06/04/19 at 18:00 IV Flush (NS 3 ml) 3 ml PER PROTOCOL IV ; Start 06/03/19 at 22:00 Ondansetron HCl (Zofran Inj) 4 mg Q6H PRN IV NAUSEA/VOMITING Last administered on 06/04/19at 17:51; Admin Dose 4 MG; Start 06/03/19 at 22:00 Acetaminophen (Tylenol Tab) 650 mg Q6H PRN PO .PAIN 1-3 OR TEMP; Start 06/03/19 at 22:00 Docusate Sodium (Colace) 100 mg Q12H PRN PO .CONSTIPATION; Start 06/03/19 at 22:00 Bisacodyl (Dulcolax) 5 mg DAILY PRN PO .CONSTIPATION; Start 06/03/19 at 22:00 Metoprolol Tartrate (Lopressor) 2.5 mg Q6H PRN IV HR GREATER THAN 115 SUSTA INED; Start 06/03/19 at 23:30 Lorazepam (Ativan) 0.5 mg BID PRN PO ANXIETY Last administered on 06/05/19at 09:26; Admin Dose 0.5 MG; Start 06/04/19 at 07:30 Metoprolol Succinate (Toprol Xl) 50 mg BID PO Last administered on 06/05/19at 08:33; Admin Dose 50 MG; Start 06/04/19 at 10:00 Ibuprofen (Motrin) 600 mg Q6H PRN PO headache Last administered on 06/04/19at 15:06; Admin Dose 600 MG; Start 06/04/19 at 14:00 Assessment/Plan Hospital Course (Demo Recall) Atrial fibrillation rapid ventricular response: Probably worsened by his headache and pain. Currently under good control Mild hypertension Possible hypertrophic cardiomyopathy Headache, ? Sinusitis versus others Recommendations Continue Toprol-XL Echo was recently done CONT XARELTO PENG ( which appears to be pt's repeated cheif complaints) work up and treatment as per IM. DC planning as per internal medicine thank you THEODORA CONRAD MD, MD Jun 05, 2019 18:01
[2019-06-05 19:53] VITALS: BP 100/68; PULSE 70; RESP 20
[2019-06-06] VITALS: BP 133/80; PULSE 80; RESP 20
[2019-06-06 03:49] VITALS: BP 112/68; RESP 20
[2019-06-06 07:53] VITALS: BP 121/80; PULSE 71; RESP 19
[2019-06-06] MEDS: DILTIAZEM 30 MG TAB PO SCH (09:10)
[2019-06-06] MEDS: IBUPROFEN 800 MG TAB PO PRN (09:11)
[2019-06-06] MEDS: METOPROLOL (XL) 50 MG TAB PO SCH (09:11)
--- NOTE | 2019-06-06 11:41 | QN ---
Documentation Comment The patient's discharge was held on 06/05/2019 because of nonclinical reasons and rather logistic reasons (nurses unable to print out discharge packets because of system maintenance/downtime). Therefore, the patient was sent home on 06/06/2019. JOHNNY HUERTA NP Jun 06, 2019 11:41
== END 2019-06-06 11:20 | disposition home or self-care (01) | DRG 310 ==
LOC: E/R 17:49 → 6WM 21:49
PROVIDERS: ADMIT Family Medicine; ATTEND Internal Medicine
DX: I48.0 Paroxysmal atrial fibrillation (principal); R51 Headache; E66.9 Obesity, unspecified; F41.9 Anxiety disorder, unspecified; I11.9 Hypertensive heart disease without heart failure; I43 Cardiomyopathy in diseases classified elsewhere
CPT/HCPCS: 36415; 71045; 80048; 80053; 83735; 84484; 85025; 85610; 93005; 96374; J2405; J3475; J7030